=== PATIENT | female | born 1940 | race Caucasian/White ===

== ENCOUNTER 2017-03-27 19:16 | Emergency (ER) | payer MEDICARE, BC, OTHER ==
[~2017-03-27] VITALS: Ht 157.5 cm; Wt 47.0 kg
[2017-03-27 19:45] VITALS: BP 184/77; PULSE 79; RESP 16; TEMP 97.9; O2SAT 97
[2017-03-27 20:33] LABS: AUTOMATED NEUTROPHIL # 5.9 TH/MM3 (1.8-7.7); BASOPHIL % 0.4 % (0.0-2.0); EOSINOPHIL # 0.3 TH/MM3 (0-0.4); EOSINOPHIL % 2.6 % (0.0-4.0); HEMATOCRIT 35.5 % (35.0-46.0); HEMO FLAGS DIFF FINAL; LYMPH % 29.4 % (9.0-44.0); MEAN CELL VOLUME 88.8 FL (80.0-100.0); MEAN CORPUSCULAR HEMOGLOBIN 28.9 PG (27.0-34.0); MEAN CORPUSCULAR HGB CONC 32.5 % (32.0-36.0); MONO % 10.3 % (0.0-8.0); NEUT % 57.3 % (16.0-70.0); PLATELET COUNT 306 TH/MM3 (150-450); RED BLOOD COUNT 3.99 MIL/MM3 (4.00-5.30); RED CELL DISTRIBUTION WIDTH 13.6 % (11.6-17.2); WHITE BLOOD COUNT 10.4 TH/MM3 (4.0-11.0)
[2017-03-27 20:55] LABS: ANION GAP 7 MEQ/L (5-15); AST (GOT) 24 U/L (15-37); BICARBONATE 26.4 MEQ/L (21.0-32.0); BLOOD UREA NITROGEN 12 MG/DL (7-18); CHLORIDE 106 MEQ/L (98-107); GLOMERULAR FILTRATION RATE 43 ML/MIN (>89); POTASSIUM 3.9 MEQ/L (3.5-5.1); SODIUM (NA) 139 MEQ/L (136-145)
[2017-03-27 21:00] LABS: ACETAMINOPHEN 19.8 MCG/ML (10.0-30.0); ALKALINE PHOSPHATASE 86 U/L (45-117); ALT (GPT) 26 U/L (10-53); TOTAL BILIRUBIN ADULT 0.2 MG/DL (0.2-1.0)
[2017-03-27] MEDS ORDERED: HALOPERIDOL LACTATE 5 MG/ML AMP IM ONE (23:00)
[2017-03-27] MEDS ORDERED: LOMO2.5T PO (23:08)
[2017-03-27] MEDS ORDERED: SYNT25TA PO (23:08)
[2017-03-27 23:12] LABS: AMPHETAMINE, URINE NEG (NEG); BACTERIA, URINE RARE /hpf; BARBITURATES, URINE POS (NEG); BLOOD, URINE NEG (NEG); CALCIUM OXALATE CRYSTALS,URINE RARE /hpf; COCAINE, URINE NEG (NEG); GLUCOSE,URINE TRACE mg/dL (NEG); HYALINE CAST, URINE 2 /lpf (RARE); KETONE, URINE NEG (NEG); MUCUS URINE FEW /lpf (OCC); NITRITE,URINE NEG (NEG); RENAL EPITHELIAL CELLS <1 /hpf; SQUAMOUS EPITHELIAL CELL URINE 3 /hpf (0-5); URINE COLOR LIGHT-YELLOW (YELLW/STRAW)
[2017-03-27 23:13] LABS: COMMENT (UR) CULT NOT INDICATED; CULTURE IF INDICATED CULT NOT INDICATED
--- NOTE | 2017-03-28 00:10 | PD ---
HPI Chief Complaint: Psychiatric Symptoms Time Seen by Provider: 20:49 Travel History International Travel<30 days: No Contact w/Intl Traveler<30days: No History of Present Illness HPI This 77-year-old woman who presents to the emergency department brought in as a Estrada act. She apparently was found in her car but did not know where she was. She apparently crawling in the rain. She was apparently acting erratically, tried to drink a bottle Glucophage pills, and also tried Arava seatbelt around her neck. He is unable to give any kind of meaningful history. History Past Medical History Narrative Medical Diabetes Hypertension Hyperthyroidism Tetanus Vaccination: < 5 Years Influenza Vaccination: Yes Social History Alcohol Use: Yes (OCCASIONALLY ) Tobacco Use: No Allergies-Medications (Allergen,Severity, Reaction): Coded Allergies: Opiate Agonists (Narcotics) (Verified Allergy, Severe, Rash, 03/27/17) Reported Meds & Prescriptions Reported Meds & Active Scripts Active Reported Synthroid (Levothyroxine Sodium) 25 Mcg Tab 25 Mcg PO DAILY Lomotil (Diphenoxylate-Atropine) 2.5-0.025 Mg Tab 1 Tab PO Q6H PRN Review of Systems ROS Limitations: Clinical Condition Physical Exam Exam Limitations: Clinical Condition Narrative GENERAL: 77 year-old woman, wandering and pacing in the room, little bit nonsensical. SKIN: Focused skin assessment warm/dry. NECK: Trachea midline. No JVD. CARDIOVASCULAR: Regular rate and rhythm. No murmur appreciated. RESPIRATORY: No accessory muscle use. Clear to auscultation. Breath sounds equal bilaterally. GASTROINTESTINAL: Abdomen soft, non-tender, nondistended. Hepatic and splenic margins not palpable. MUSCULOSKELETAL: No obvious deformities. No edema. NEUROLOGICAL: Awake and alert. Obvious confusion. No obvious cranial nerve deficits. Motor grossly within normal limits. Normal speech. PSYCHIATRIC: Disorganized and confused. Data Data Last Documented VS Vital Signs Date Time Temp Pulse Resp B/P Pulse Ox O2 Delivery O2 Flow Rate FiO2 03/27/17 19:45 97.9 79 16 184/77 97 Room Air Orders Complete Blood Count With Diff (03/27/17 20:04) Comprehensive Metabolic Panel (03/27/17 20:04) Urinalysis - C+S If Indicated (03/27/17 20:04) Psych Screen (03/27/17 20:04) Drug Screen, Random Urine (03/27/17 20:04) Alcohol (Ethanol) (03/27/17 20:04) Salicylates (Aspirin) (03/27/17 20:04) Tylenol (Acetaminophen) (03/27/17 20:04) Haloperidol Inj (Haldol Inj) (03/27/17 23:00) Labs Laboratory Tests Test 03/27/17 03/27/17 20:12 22:00 White Blood Count 10.4 TH/MM3 Red Blood Count 3.99 MIL/MM3 Hemoglobin 11.5 GM/DL Hematocrit 35.5 % Mean Corpuscular Volume 88.8 FL Mean Corpuscular Hemoglobin 28.9 PG Mean Corpuscular Hemoglobin 32.5 % Concent Red Cell Distribution Width 13.6 % Platelet Count 306 TH/MM3 Mean Platelet Volume 8.0 FL Neutrophils (%) (Auto) 57.3 % Lymphocytes (%) (Auto) 29.4 % Monocytes (%) (Auto) 10.3 % Eosinophils (%) (Auto) 2.6 % Basophils (%) (Auto) 0.4 % Neutrophils # (Auto) 5.9 TH/MM3 Lymphocytes # (Auto) 3.0 TH/MM3 Monocytes # (Auto) 1.1 TH/MM3 Eosinophils # (Auto) 0.3 TH/MM3 Basophils # (Auto) 0.0 TH/MM3 CBC Comment DIFF FINAL Differential Comment Sodium Level 139 MEQ/L Potassium Level 3.9 MEQ/L Chloride Level 106 MEQ/L Carbon Dioxide Level 26.4 MEQ/L Anion Gap 7 MEQ/L Blood Urea Nitrogen 12 MG/DL Creatinine 1.22 MG/DL Estimat Glomerular Filtration 43 ML/MIN Rate Random Glucose 73 MG/DL Calcium Level 8.8 MG/DL Total Bilirubin 0.2 MG/DL Aspartate Amino Transf 24 U/L (AST/SGOT) Alanine Aminotransferase 26 U/L (ALT/SGPT) Alkaline Phosphatase 86 U/L Total Protein 7.3 GM/DL Albumin 3.5 GM/DL Salicylates Level 17.8 MG/DL Acetaminophen Level 19.8 MCG/ML Ethyl Alcohol Level LESS THAN 3 MG/DL Urine Color LIGHT-YELLOW Urine Turbidity CLEAR Urine pH 6.0 Urine Specific [place] 1.008 Urine Protein TRACE mg/dL Urine Glucose (UA) TRACE mg/dL Urine Ketones NEG mg/dL Urine Occult Blood NEG Urine Nitrite NEG Urine Bilirubin NEG Urine Urobilinogen LESS THAN 2.0 MG/DL Urine Leukocyte Esterase LARGE Urine RBC 1 /hpf Urine WBC 8 /hpf Urine Squamous Epithelial 3 /hpf Cells Urine Renal Epithelial Cells <1 /hpf Urine Calcium Oxalate Crystals RARE /hpf Urine Bacteria RARE /hpf Urine Hyaline Casts 2 /lpf Urine Mucus FEW /lpf Microscopic Urinalysis Comment CULT NOT INDICATED Urine Opiates Screen POS Urine Barbiturates Screen POS Urine Amphetamines Screen NEG Urine Benzodiazepines Screen POS Urine Cocaine Screen NEG Urine Cannabinoids Screen NEG MDM Medical Decision Making Medical Screen Exam Complete: Yes Emergency Medical Condition: Yes Interpretation(s) LABS: CBC is remarkable for mild anemia. CMP is unremarkable. UA is unremarkable. Urine drugs positive for opiates, barbiturates, benzos, alcohol negative Differential Diagnosis Dementia, psychotic disease, adverse effect of illicit drugs, other Narrative Course 77 year-old woman, bizarre behavior unclear etiology. Unknown if she has established psychiatric disease. Possibly dementia but appears more psychiatric. Possibly related to illicit drugs. Patient is medically clear for psychiatric evaluation. Fazal Hudson MD Mar 28, 2017 00:10
[2017-03-28 07:00] VITALS: BP 162/74; PULSE 77; RESP 16; TEMP 98; O2SAT 98
--- NOTE | 2017-03-28 09:05 | PD ---
History of Present Illness Chief Complaint: Psychiatric Symptoms Time Seen by Provider: 08:59 Travel History International Travel<30 Days: No Contact w/Intl Traveler<30days: No Legal Status Legal Status: Estrada Act Estrada Act Signed By: Caron To History of Present Illness: History of Present Illness This 77-year-old woman with no reported psychiatric history who presents to the emergency department brought in as a Estrada act. The BA report alleges that she was found in her car but did not know where she was, that she had been crawling in the rain and that she attempted to drink a bottle of Glucophage , as well as attempting to wrap the seat belt around her neck. EMR is reviewed. No previous contact with [facility]. Current toxicology is positive for opiates, barbiturates and benzos. The patient is seen in main Ed. She is eating her breakfast. Alert , oriented to person, May 08, 2017, knows she is in [place]. Her speech is clear and she is able to engage in conversation. She denies that she was crawling in the rain and denies that she tried to take any pills. I believe that she has no recollection of those events. She denies any suicdal or homicidal ideation, intent or plan. She denies hearing any voices. She is suspicious of her family and states that they are trying to keep her money. She lives with her brother. She denies feeling depressed or anxious. She denies that she takes any medication except her medication for high blood pressure and for her diabetes. Unable to explain other medications that are detected in her system. While in ED she has not been agitated in aggressive in any way and has not demonstrated any unusual behavior. TC to brother at [phone]. No answer. message left. PFSH Past Medical History Diabetes: Yes Patient Takes Glucophage: Yes Hypertension: Yes Thyroid Disease: Yes Tetanus Vaccination: < 5 Years Influenza Vaccination: Yes Psychiatric History Psychiatric History Hx Psychiatric Treatment: Deneis any History of Inpatient Treatment: No Guns or firearms in home: No Social History Lives with her brother. 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 Hx Alcohol Use: Yes (OCCASIONALLY ) Hx Tobacco Use: No Hx Substance Use: No Hx of Substance Use Treatment: No Family Psychiatric History None reported Allergies-Medications (Allergen,Severity, Reaction): Coded Allergies: Opiate Agonists (Narcotics) (Verified Allergy, Severe, Rash, 03/27/17) Reported Meds & Prescriptions Reported Meds & Active Scripts Active Reported Synthroid (Levothyroxine Sodium) 25 Mcg Tab 25 Mcg PO DAILY Lomotil (Diphenoxylate-Atropine) 2.5-0.025 Mg Tab 1 Tab PO Q6H PRN Review of Systems Except as stated in HPI: all other systems reviewed are Neg Exam Alert: Yes [place]: Person, Place, Situation Mood: Calm Affect: Appropriate Speech: Clear Eye Contact: Normal Memory Intact: Comment (No gross abnormality) Hallucinations: Other (denies any) Delusions: No Delusion Type: Other (Susopicious of her family ) Suicidal: Ideation (deneis any) Homicidal: Ideation (deneis any ) Insight/Judgement Poor. Poor MDM Medical Decision Making Medical Record Reviewed: Yes Assessment/Plan This 77-year-old woman with no reported psychiatric history who presents to the emergency department brought in as a Estrada act. The BA report alleges that she was found in her car but did not know where she was, that she had been crawling in the rain and that she attempted to drink a bottle of Glucophage , as well as attempting to wrap the seat belt around her neck. Positive toxicology for benzos, barbiturates as well as opiates. She did not present any behaviors while in ED. Possibly she presented with intoxication from medications she may have taken or she is displaying symptoms associated with dementia. At this time and after observation in ED she does not meet criteria for BA . It will be lifted. Unable to obtain collateral information at this time. I will refer to CM to attempt to contact her brother for information as well as to determine if he will pick her up. If we are able to speak with her brother and he presents no concerns she can be discharged to his care. Orders Complete Blood Count With Diff (03/27/17 20:04) Comprehensive Metabolic Panel (03/27/17 20:04) Urinalysis - C+S If Indicated (03/27/17 20:04) Psych Screen (03/27/17 20:04) Drug Screen, Random Urine (03/27/17 20:04) Alcohol (Ethanol) (03/27/17 20:04) Salicylates (Aspirin) (03/27/17 20:04) Tylenol (Acetaminophen) (03/27/17 20:04) Haloperidol Inj (Haldol Inj) (03/27/17 23:00) Diet Regular Basic (03/28/17 Breakfast) Results Vital Signs Date Time Temp Pulse Resp B/P Pulse Ox O2 Delivery O2 Flow Rate FiO2 03/27/17 19:45 97.9 79 16 184/77 97 Room Air Laboratory Tests Test 03/27/17 03/27/17 20:12 22:00 White Blood Count 10.4 Red Blood Count 3.99 Hemoglobin 11.5 Hematocrit 35.5 Mean Corpuscular Volume 88.8 Mean Corpuscular Hemoglobin 28.9 Mean Corpuscular Hemoglobin 32.5 Concent Red Cell Distribution Width 13.6 Platelet Count 306 Mean Platelet Volume 8.0 Neutrophils (%) (Auto) 57.3 Lymphocytes (%) (Auto) 29.4 Monocytes (%) (Auto) 10.3 Eosinophils (%) (Auto) 2.6 Basophils (%) (Auto) 0.4 Neutrophils # (Auto) 5.9 Lymphocytes # (Auto) 3.0 Monocytes # (Auto) 1.1 Eosinophils # (Auto) 0.3 Basophils # (Auto) 0.0 CBC Comment DIFF FINAL Differential Comment Sodium Level 139 Potassium Level 3.9 Chloride Level 106 Carbon Dioxide Level 26.4 Anion Gap 7 Blood Urea Nitrogen 12 Creatinine 1.22 Estimat Glomerular Filtration 43 Rate Random Glucose 73 Calcium Level 8.8 Total Bilirubin 0.2 Aspartate Amino Transf 24 (AST/SGOT) Alanine Aminotransferase 26 (ALT/SGPT) Alkaline Phosphatase 86 Total Protein 7.3 Albumin 3.5 Salicylates Level 17.8 Acetaminophen Level 19.8 Ethyl Alcohol Level LESS THAN 3 Urine Color LIGHT-YELLOW Urine Turbidity CLEAR Urine pH 6.0 Urine Specific [place] 1.008 Urine Protein TRACE Urine Glucose (UA) TRACE Urine Ketones NEG Urine Occult Blood NEG Urine Nitrite NEG Urine Bilirubin NEG Urine Urobilinogen LESS THAN 2.0 Urine Leukocyte Esterase LARGE Urine RBC 1 Urine WBC 8 Urine Squamous Epithelial 3 Cells Urine Renal Epithelial Cells <1 Urine Calcium Oxalate Crystals RARE Urine Bacteria RARE Urine Hyaline Casts 2 Urine Mucus FEW Microscopic Urinalysis Comment CULT NOT INDICATED Urine Opiates Screen POS Urine Barbiturates Screen POS Urine Amphetamines Screen NEG Urine Benzodiazepines Screen POS Urine Cocaine Screen NEG Urine Cannabinoids Screen NEG Diagnosis Primary Impression: Adjustment disorder Psychiatrically Cleared: Yes Disposition: 01 DISCHARGE HOME Condition: Stable Problem Qualifiers Primary Impression: Adjustment disorder Qualified Code: F43.20 - Adjustment disorder, unspecified type Felecia Alvarez Mar 28, 2017 09:05
[2017-03-28 14:33] VITALS: BP 158/78
== END 2017-03-28 14:52 | disposition home or self-care (01) ==
LOC: NEPD 19:16
DX: Z02.89 Encounter for other administrative examinations (principal); F43.20 Adjustment disorder, unspecified; E03.9 Hypothyroidism, unspecified; E11.9 Type 2 diabetes mellitus without complications; Z79.84 Long term (current) use of oral hypoglycemic drugs
CPT/HCPCS: 80053; 80307; 81001; 85025; 96372; 99284; J1630

== ENCOUNTER 2017-04-06 12:04 | Observation (INO) | payer MEDICARE, BC ==
[2017-04-06] VITALS (11 sets, daily range): BP systolic 119–235; BP diastolic 61–98; PULSE 70–101; RESP 16–20; TEMP 96–98.4; O2SAT 97–100
[~2017-04-06] VITALS: Ht 160 cm; Wt 52.0 kg
[~2017-04-06 12:04] MED LIST: LOMO2.5T PO; SYNT25TA PO
--- NOTE | 2017-04-06 12:15 | PD ---
Physical Exam Date Seen by Provider: Apr 06, 2017 Time Seen by Provider: 12:12 Narrative 77 YOWF FEELING OVER WHELMED. A LOT OF ISSUES. WANTS TO BE CHECKED OUT VS REVIEWED WAITING FOR BED PLACEMENT Data Data Last Documented VS Vital Signs Date Time Temp Pulse Resp B/P Pulse Ox O2 Delivery O2 Flow Rate FiO2 04/06/17 12:07 96.0 73 16 235/98 MDM Supervised Visit with ISABELLE: Rodrigo Shrestha Apr 06, 2017 12:15
[2017-04-06] MEDS ORDERED: SODIUM CHLORIDE 0.9% FLUSH 5 ML FLUSH IV FLUSH PRN (14:00)
[2017-04-06] MEDS ORDERED: hydrALAZINE HCL 20 MG/ML VIAL IV PUSH ONE (14:00)
--- NOTE | 2017-04-06 14:03 | PD ---
HPI Chief Complaint: General Weakness Time Seen by Provider: 13:54 Travel History International Travel<30 days: No Contact w/Intl Traveler<30days: No Traveled to known affect area: No History of Present Illness HPI 77 year old female presents to the emergency department for evaluation. The patient cannot tell me why she is here. At first, she tells me that she felt like she needed to come or she thought she was going to "". Then she states that she does not know why she is here. Then the patient became confused and did not show she was in the emergency department. She does know her name and that she is at the hospital. However, she later became confused and did not know she was in the hospital. She was able to tell me the year and thought we ran either March or April. She told me that she has a [place] but now, but does not live there because the family issues. First, she told me she slept on a park bench last night, but then tells me that she does not know where she slept. She also tells me that she does not know how she got to the emergency department. The patient denies any complaints when I ask her. The patient is acting bizarre and confused. The patient states that she does not take any of her medications for about a month. At first, she told me that her family did not give him to her. She then stated that her doctor, Dr. Goncalves, would not give her her medications. Patient will not give me any names or numbers of family members. Patient denies any history of psychiatric illness to me. She denies any suicidal or homicidal ideation. PFSH Past Medical History Cardiovascular Problems: Yes Diabetes: Yes Diminished Hearing: No Hypertension: Yes Neurologic: Yes ([facility]) Thyroid Disease: Yes Tetanus Vaccination: > 5 Years Influenza Vaccination: Yes ?: Not Social History Alcohol Use: Yes (OCCASIONALLY ) Tobacco Use: Yes (SOME DAYS) Substance Use: No (PT DENIES ) Allergies-Medications (Allergen,Severity, Reaction): Coded Allergies: Opioids - Morphine Analogues (Verified Allergy, Severe, Rash, 04/06/17) Opioids-Meperidine and Related (Verified Allergy, Severe, Rash, 04/06/17) Opioids-Methadone and Related (Verified Allergy, Severe, Rash, 04/06/17) Reported Meds & Prescriptions Reported Meds & Active Scripts Active Reported Amitriptyline (Amitriptyline HCl) 25 Mg Tab 25 Mg PO HS Clonidine (Clonidine HCl) 0.2 Mg Tab 0.2 Mg PO HS Gabapentin 300 Mg Cap 300 Mg PO HS Levothyroxine (Levothyroxine Sodium) 50 Mcg Tab 50 Mcg PO DAILY@1600 Pravastatin 20 Mg Tab 20 Mg PO HS Hydrochlorothiazide 25 Mg Tab 25 Mg PO DAILY Prilosec (Omeprazole Magnesium) 20 Mg Tab 40 Mg PO DAILY Glimepiride 4 Mg Tab 4 Mg PO BID Take with breakfast or first main meal Carvedilol 25 Mg Tab 25 Mg PO BID Altace (Ramipril) 10 Mg Cap 10 Mg PO DAILY Review of Systems Except as stated in HPI: all other systems reviewed are Neg Physical Exam Narrative GENERAL: Well-nourished, well-developed elderly female patient, afebrile. SKIN: Focused skin assessment warm/dry. HEAD: Normocephalic. EYES: No scleral icterus. No injection or drainage. NECK: Supple, trachea midline. No JVD or lymphadenopathy. CARDIOVASCULAR: Regular rate and rhythm without murmurs, gallops, or rubs. Bilateral radial and pedal pulses are 2+. RESPIRATORY: Breath sounds equal bilaterally. No accessory muscle use. Lungs sounds are clear to auscultation GASTROINTESTINAL: Abdomen soft, non-tender, nondistended. MUSCULOSKELETAL: No cyanosis, or edema. Bilateral upper and lower extremity strength 5/5. BACK: Nontender without obvious deformity. No CVA tenderness. Data Data Last Documented VS Vital Signs Date Time Temp Pulse Resp B/P Pulse Ox O2 Delivery O2 Flow Rate FiO2 04/06/17 16:17 97.8 92 17 145/68 100 Room Air Orders Electrocardiogram (04/06/17 13:48) Ammonia (04/06/17 13:48) Complete Blood Count With Diff (04/06/17 13:48) Comprehensive Metabolic Panel (04/06/17 13:48) Creatine Kinase (Cpk) (04/06/17 13:48) Prothrombin Time / Inr (Pt) (04/06/17 13:48) Act Partial Throm Time (Ptt) (04/06/17 13:48) Troponin I (04/06/17 13:48) Urinalysis - C+S If Indicated (04/06/17 13:48) Chest, Single Ap (04/06/17 13:48) Ct Brain W/O Iv Contrast(Rout) (04/06/17 13:48) Blood Glucose (04/06/17 13:48) Ecg Monitoring (04/06/17 13:48) Iv Access Insert/Monitor (04/06/17 13:48) Oximetry (04/06/17 13:48) Sodium Chloride 0.9% Flush (Ns Flush) (04/06/17 14:00) Drug Screen, Random Urine (04/06/17 13:48) Alcohol (Ethanol) (04/06/17 13:48) Hydralazine Inj (Apresoline Inj) (04/06/17 14:00) Cath For Specimen (04/06/17 13:51) Haloperidol Inj (Haldol Inj) (04/06/17 15:00) Lorazepam Inj (Ativan Inj) (04/06/17 15:00) Aspirin Chew (Aspirin Chew) (04/06/17 16:30) Admit Order (Ed Use Only) (04/06/17 16:34) Labs Laboratory Tests Test 04/06/17 14:05 White Blood Count 11.9 TH/MM3 Red Blood Count 4.18 MIL/MM3 Hemoglobin 12.5 GM/DL Hematocrit 37.4 % Mean Corpuscular Volume 89.4 FL Mean Corpuscular Hemoglobin 30.0 PG Mean Corpuscular Hemoglobin 33.5 % Concent Red Cell Distribution Width 13.9 % Platelet Count 331 TH/MM3 Mean Platelet Volume 8.4 FL Neutrophils (%) (Auto) 70.0 % Lymphocytes (%) (Auto) 20.8 % Monocytes (%) (Auto) 7.8 % Eosinophils (%) (Auto) 1.0 % Basophils (%) (Auto) 0.4 % Neutrophils # (Auto) 8.4 TH/MM3 Lymphocytes # (Auto) 2.5 TH/MM3 Monocytes # (Auto) 0.9 TH/MM3 Eosinophils # (Auto) 0.1 TH/MM3 Basophils # (Auto) 0.1 TH/MM3 CBC Comment DIFF FINAL Differential Comment Urine Color LIGHT-YELLOW Urine Turbidity CLEAR Urine pH 6.5 Urine Specific [place] 1.006 Urine Protein 30 mg/dL Urine Glucose (UA) NEG mg/dL Urine Ketones NEG mg/dL Urine Occult Blood NEG Urine Nitrite NEG Urine Bilirubin NEG Urine Urobilinogen LESS THAN 2.0 MG/DL Urine Leukocyte Esterase NEG Urine RBC 7 /hpf Urine WBC LESS THAN 1 /hpf Urine Squamous Epithelial <1 /hpf Cells Microscopic Urinalysis Comment CULT NOT INDICATED Sodium Level 135 MEQ/L Potassium Level 4.5 MEQ/L Chloride Level 100 MEQ/L Carbon Dioxide Level 26.3 MEQ/L Anion Gap 9 MEQ/L Blood Urea Nitrogen 17 MG/DL Creatinine 1.35 MG/DL Estimat Glomerular Filtration 38 ML/MIN Rate Random Glucose 153 MG/DL Calcium Level 9.9 MG/DL Total Bilirubin 0.4 MG/DL Aspartate Amino Transf 25 U/L (AST/SGOT) Alanine Aminotransferase 30 U/L (ALT/SGPT) Alkaline Phosphatase 117 U/L Ammonia 18 MCMOL/L Total Creatine Kinase 66 U/L Troponin I LESS THAN 0.02 NG/ML Total Protein 8.2 GM/DL Albumin 3.8 GM/DL Urine Opiates Screen NEG Urine Barbiturates Screen NEG Urine Amphetamines Screen NEG Urine Benzodiazepines Screen NEG Urine Cocaine Screen NEG Urine Cannabinoids Screen NEG Ethyl Alcohol Level LESS THAN 3 MG/DL MDM Medical Decision Making Medical Screen Exam Complete: Yes Emergency Medical Condition: Yes Medical Record Reviewed: Yes Interpretation(s) Last Impressions Head CT 04/06/17 1348 Signed Impressions: Service Date/Time: March 15:25 - CONCLUSION: 1. No acute hemorrhage or mass effect. 2. Atrophy and chronic small vessel ischemic change. Da Anderson MD Chest X-Ray 04/06/17 1348 Signed Impressions: Service Date/Time: March 13:59 - CONCLUSION: No acute disease. Glenn Roger MD Differential Diagnosis Electrolyte abnormality versus intracranial abnormality versus dementia versus dehydration versus UTI Narrative Course 77-year-old elderly female presents to the emergency department, unsure as to why she is here. However, she is acting bizarre and confused. EKG, CBC, CMP, CK, troponin, ammonia, PTT, PT/INR, UA, UDS, alcohol level are ordered and pending. Chest x-ray and CT of the brain are ordered and pending. EKG shows SR, Hr 92, ST depression in V4, V5, V6, II, III, AVF. CBC shows leukocytosis of 11.9. CMP shows creatinine 1.35. CK is 66. Troponin is less than 0.02. Ammonia is 18. UA .is negative for acute infection. UDS is negative. Alcohol level is less than 3. Chest x-ray shows no acute disease. CT of the brain shows no acute hemorrhage or mass effect; Atrophy and chronic small vessel ischemic change. [facility] is paged for admission. Dr. Russell accepted admission. Diagnosis Primary Impression: Altered mental status, unspecified Qualified Code: R41.82 - Altered mental status, unspecified altered mental status type Additional Impression: EKG abnormalities Admitting Information Admitting Physician Requests: Jaki De La Rosa Apr 06, 2017 14:03
--- NOTE | 2017-04-06 14:48 | RADRPT ---
EXAM DATE/TIME: 04/06/2017 13:59 [facility] COMPARISON: No previous studies available for comparison. INDICATIONS : Short of breath. AMS. MEDICAL HISTORY : None. SURGICAL HISTORY : None. ENCOUNTER: Initial ACUITY: 1 day PAIN SCORE: 0/10 LOCATION: Bilateral chest FINDINGS: A single view of the chest demonstrates the lungs to be symmetrically aerated without evidence of mas s, infiltrate or effusion. The cardiomediastinal contours are unremarkable. Osseous structures are intact. CONCLUSION: No acute disease. Glenn Roger MD on April 06, 2017 at 14:43 Board Certified Radiologist. This report was verified electronically.
[2017-04-06] MEDS ORDERED: LORazepam 2 MG/ML VIAL IV PUSH ONE (15:00)
[2017-04-06] MEDS ORDERED: HALOPERIDOL LACTATE 5 MG/ML AMP IV PUSH ONE (15:00)
[2017-04-06 15:07] LABS: AUTOMATED NEUTROPHIL # 8.4 TH/MM3 (1.8-7.7); BASOPHIL # 0.1 TH/MM3 (0-0.2); BASOPHIL % 0.4 % (0.0-2.0); BLOOD, URINE NEG (NEG); COMMENT (UR) CULT NOT INDICATED; CULTURE IF INDICATED CULT NOT INDICATED; EOSINOPHIL # 0.1 TH/MM3 (0-0.4); GLUCOSE,URINE NEG (NEG); HEMATOCRIT 37.4 % (35.0-46.0); HEMO FLAGS DIFF FINAL; KETONE, URINE NEG (NEG); LYMPH % 20.8 % (9.0-44.0); LYMPHOCYTE # 2.5 TH/MM3 (1.0-4.8); MEAN CELL VOLUME 89.4 FL (80.0-100.0); MEAN CORPUSCULAR HGB CONC 33.5 % (32.0-36.0); MONO % 7.8 % (0.0-8.0); NITRITE,URINE NEG (NEG); PH, URINE 6.5 (5.0-8.5); PLATELET COUNT 331 TH/MM3 (150-450); RED BLOOD COUNT 4.18 MIL/MM3 (4.00-5.30); RED CELL DISTRIBUTION WIDTH 13.9 % (11.6-17.2); SQUAMOUS EPITHELIAL CELL URINE <1 /hpf (0-5); URINE COLOR LIGHT-YELLOW (YELLW/STRAW); WHITE BLOOD COUNT 11.9 TH/MM3 (4.0-11.0)
[2017-04-06 15:33] LABS: ALCOHOL LESS THAN 3 MG/DL (0-5); ALT (GPT) 30 U/L (10-53); ANION GAP 9 MEQ/L (5-15); AST (GOT) 25 U/L (15-37); BICARBONATE 26.3 MEQ/L (21.0-32.0); BLOOD UREA NITROGEN 17 MG/DL (7-18); CHLORIDE 100 MEQ/L (98-107); GLOMERULAR FILTRATION RATE 38 ML/MIN (>89); POTASSIUM 4.5 MEQ/L (3.5-5.1); SODIUM (NA) 135 MEQ/L (136-145)
[2017-04-06 15:39] LABS: ALKALINE PHOSPHATASE 117 U/L (45-117); TOTAL BILIRUBIN ADULT 0.4 MG/DL (0.2-1.0)
--- NOTE | 2017-04-06 15:41 | RADRPT ---
EXAM DATE/TIME: 04/06/2017 15:25 [facility] COMPARISON: No previous studies available for comparison. INDICATIONS : Weakness RADIATION DOSE: 56.35 CTDIvol (mGy) ; Patient motion MEDICAL HISTORY : Hypertension. Diabetes mellitus type 1. SURGICAL HISTORY : None. ENCOUNTER: Initial ACUITY: 1 day PAIN SCALE: 0/10 LOCATION: cranial TECHNIQUE: Multiple contiguous axial images were obtained of the head. Using automated exposure control and adj ustment of the mA and/or kV according to patient size, radiation dose was kept as low as reasonably a chievable to obtain optimal diagnostic quality images. DICOM format image data is available electro nically for review and comparison. FINDINGS: CEREBRUM: There is moderate atrophic change with sulcal and ventricular prominence. Periventricular white matte r lucencies are present. No evidence of midline shift, mass lesion, hemorrhage or acute infarction. No extra-axial fluid collections are seen. POSTERIOR FOSSA: The cerebellum and brainstem are intact. The 4th ventricle is midline. The cerebellopontine angle i s unremarkable. EXTRACRANIAL: The visualized portion of the orbits is intact. SKULL: The calvaria is intact. No evidence of skull fracture. CONCLUSION: 1. No acute hemorrhage or mass effect. 2. Atrophy and chronic small vessel ischemic change. Da Anderson MD on April 06, 2017 at 15:39 Board Certified Radiologist. This report was verified electronically.
[2017-04-06 15:47] LABS: CREATINE KINASE 66 U/L (26-192)
[2017-04-06] MEDS ORDERED: CLON0.2T PO (16:26)
[2017-04-06] MEDS ORDERED: LEVO50TA4 PO (16:26)
[2017-04-06] MEDS ORDERED: PRIL20TA2 PO (16:26)
[2017-04-06] MEDS ORDERED: AMIT25TA9 PO (16:26)
[2017-04-06] MEDS ORDERED: ALTA10CA10 PO (16:26)
[2017-04-06] MEDS ORDERED: HYDR25TA5 PO (16:26)
[2017-04-06] MEDS ORDERED: CARV25TA PO (16:26)
[2017-04-06] MEDS ORDERED: GABA300C5 PO (16:26)
[2017-04-06] MEDS ORDERED: GLIM4TAB PO (16:26)
[2017-04-06] MEDS ORDERED: PRAV20TA2 PO (16:26)
[2017-04-06] MEDS ORDERED: ASPIRIN 81 MG CHEW TAB CHEW ONE (16:30)
[2017-04-06 17:07] LABS: APTT (PATIENT) 26.9 SEC (24.3-30.1); PROTHROMBIN TIME - PATIENT 11.2 SEC (9.8-11.6)
--- NOTE | 2017-04-06 19:08 | HHI.HP ---
[facility] Service [place] [facility] Primary Care Physician No Primary Care Physician Admission Diagnosis AMS, EKG changes Diagnoses: Chief Complaint: Chest pain Travel History International Travel<30 Days: No Contact w/Intl Traveler <30 Da: No Traveled to Known Affected Are: No History of Present Illness Written by Kristi Sawant, acting as scribe for Dr. Russell on 04/06/17 at 18: 45. Ms. Spence is a 77-year-old female patient with a known medical history of hypertension and COPD who presented to the ED with complaints of chest pain. Patient is a relatively poor historian, alert and oriented x 2 with intermittent disorientation regarding current situation, prescribed medications and living situations. She tates that she was taking her daily walk around the neighborhood, during mid-day hours, and on her way back to the house she became diaphoretic and noticed a sudden chest discomfort with associated back and abdomen pain. Patient states the chest pain was focused in her left anterior chest area, was squeezing and tight in nature, "like someone was sitting on my chest". States the pain would subside with rest and worsens with activity. Pain would last roughly 5 minutes and subside and an 8/10 on pain scale. Currently when asked about chest discomfort she states it is a 5/10. Denies any recent illness including fever, chills, cough, shortness of breath, nausea, vomiting or diarrhea. It should be noted that patient was brought in via EMS this afternoon and found to be completely confused and disoriented upon arrival. At that time she was unable to recount any of the preceding events. Currently patient appears to be alert and oriented and aware of events leading up to her arrival. At one point during the conversation she states she lives in a home with her cousin and denies any close relatives and very compliant with her medications. Later in the conversation states she is homeless and does not know where she lives or aware of any prescribed medications. EMR shows that patient recently presented to the ED for psychiatric symptoms under [place] Act which was eventually lifted and patient cleared for discharge, not meeting psychiatric criteria for admission. Review of Systems Constitutional: COMPLAINS OF: Diaphoretic episodes, Change in appetite, DENIES : Fever, Chills Cardiovascular: COMPLAINS OF: Chest pain, Palpitations Gastrointestinal: COMPLAINS OF: Abdominal pain, DENIES: Constipation, Diarrhea , Nausea, Vomiting Musculoskeletal: COMPLAINS OF: Back pain Neurologic: COMPLAINS OF: Headache Psychiatric: COMPLAINS OF: Confusion Except as stated in HPI: all other systems reviewed are Neg Past Family Social History Past Medical History Hypertension Psychiatric history COPD Hypothyroidism Sleep apnea with BIPAP at home for nighttime Tobacco abuse history Past Surgical History Previous abdominal surgery as a child, does not remember what was done. Hysterectomy Allergies: Coded Allergies: Opioids - Morphine Analogues (Verified Allergy, Severe, Rash, 04/06/17) Opioids-Meperidine and Related (Verified Allergy, Severe, Rash, 04/06/17) Opioids-Methadone and Related (Verified Allergy, Severe, Rash, 04/06/17) Active Ordered Medications Current Medications Medications (Trade) Dose Ordered Sig/Matilda Route Start Time Stop Time Status Last Admin (NS Flush) 2 ml UNSCH PRN IV FLUSH 04/06/17 14:00 04/06/17 14:27 Family History Patient does not know of any significant family medical history. Social History Patient lives in a house with her cousin. Denies any current tobacco use, does admit to a smoking history, stopped smoking in her 50's. Denies any alcohol use. Denies any illicit drug use. Physical Exam Vital Signs Vital Signs Date Time Temp Pulse Resp B/P Pulse Ox O2 Delivery O2 Flow Rate FiO2 04/06/17 18:00 97.8 98 16 148/79 99 Room Air 04/06/17 16:17 97.8 92 17 145/68 100 Room Air 04/06/17 15:08 97.8 87 16 155/65 100 Room Air 04/06/17 14:27 82 16 205/81 99 Room Air 04/06/17 13:50 17 100 Room Air 04/06/17 13:50 87 16 100 04/06/17 12:07 96.0 73 16 235/98 Physical Exam GENERAL: This is a well-nourished, well-developed female patient, alert, intermittently oriented with occasional disorientation to situation, in no apparent distress. SKIN: No rashes, ecchymoses or lesions. Warm and dry. HEENT: Atraumatic. Normocephalic. Pupils equal round and reactive. Extraocular motions intact. No scleral icterus. No injection or drainage. Nose without bleeding. Airway patent. NECK: Trachea midline. No JVD. Supple. CARDIOVASCULAR: Regular rate and rhythm. No murmur appreciated. RESPIRATORY: Clear to auscultation. Breath sounds equal bilaterally. No wheezes , rales, or rhonchi. GASTROINTESTINAL: Abdomen soft, non-tender, nondistended. Previous abdominal scar noted in midline abdomen. No guarding. MUSCULOSKELETAL: Extremities without clubbing, cyanosis. Bilateral lower extremity edema 1+. No joint tenderness, effusion, or edema noted. No calf tenderness. NEUROLOGICAL: Awake and alert. Cranial nerves II through XII intact. Motor and sensory grossly within normal limits. Five out of 5 muscle strength in all muscle groups. Normal speech. Laboratory Laboratory Tests Test 04/06/17 04/06/17 14:05 15:45 White Blood Count 11.9 Red Blood Count 4.18 Hemoglobin 12.5 Hematocrit 37.4 Mean Corpuscular Volume 89.4 Mean Corpuscular Hemoglobin 30.0 Mean Corpuscular Hemoglobin 33.5 Concent Red Cell Distribution Width 13.9 Platelet Count 331 Mean Platelet Volume 8.4 Neutrophils (%) (Auto) 70.0 Lymphocytes (%) (Auto) 20.8 Monocytes (%) (Auto) 7.8 Eosinophils (%) (Auto) 1.0 Basophils (%) (Auto) 0.4 Neutrophils # (Auto) 8.4 Lymphocytes # (Auto) 2.5 Monocytes # (Auto) 0.9 Eosinophils # (Auto) 0.1 Basophils # (Auto) 0.1 CBC Comment DIFF FINAL Differential Comment Urine Color LIGHT-YELLOW Urine Turbidity CLEAR Urine pH 6.5 Urine Specific [place] 1.006 Urine Protein 30 Urine Glucose (UA) NEG Urine Ketones NEG Urine Occult Blood NEG Urine Nitrite NEG Urine Bilirubin NEG Urine Urobilinogen LESS THAN 2.0 Urine Leukocyte Esterase NEG Urine RBC 7 Urine WBC LESS THAN 1 Urine Squamous Epithelial <1 Cells Microscopic Urinalysis Comment CULT NOT INDICATED Sodium Level 135 Potassium Level 4.5 Chloride Level 100 Carbon Dioxide Level 26.3 Anion Gap 9 Blood Urea Nitrogen 17 Creatinine 1.35 Estimat Glomerular Filtration 38 Rate Random Glucose 153 Calcium Level 9.9 Total Bilirubin 0.4 Aspartate Amino Transf 25 (AST/SGOT) Alanine Aminotransferase 30 (ALT/SGPT) Alkaline Phosphatase 117 Ammonia 18 Total Creatine Kinase 66 Troponin I LESS THAN 0.02 Total Protein 8.2 Albumin 3.8 Urine Opiates Screen NEG Urine Barbiturates Screen NEG Urine Amphetamines Screen NEG Urine Benzodiazepines Screen NEG Urine Cocaine Screen NEG Urine Cannabinoids Screen NEG Ethyl Alcohol Level LESS THAN 3 Prothrombin Time 11.2 Prothromb Time International 1.0 Ratio Activated Partial 26.9 Thromboplast Time Result Diagram: 04/06/17 1405 04/06/17 1405 Imaging Last Impressions Head CT 04/06/17 1348 Signed Impressions: Service Date/Time: March 15:25 - CONCLUSION: 1. No acute hemorrhage or mass effect. 2. Atrophy and chronic small vessel ischemic change. Da Anderson MD Chest X-Ray 04/06/17 1348 Signed Impressions: Service Date/Time: March 13:59 - CONCLUSION: No acute disease. Glenn Roger MD Assessment and Plan Assessment and Plan Ms. Spence is a 77-year-old female patient with a known medical history of hypertension, dyslipidemia and COPD who presented to the ED with complaints of chest pain. Atypical chest pain: Initial troponin negative. Follow serial troponins. EKG reviewed showing mild ST depression, NSR. Continue cardiac telemetry. Control pain. Altered mental status, intermittent: suspect secondary to psychiatric history vs medication misuse vs dehydration - Haldol IV and Lorazepam IV given x 1 in ED. - CT head reviewed and unremarkable. - Intermittently disoriented to situation. Attempt to reorient. - Will consult psychiatry for further evaluation, appreciate recommendations. - Continue neuro checks. Hypertension, chronic: BP elevated on presentation 235/98 now 148/79 status post hydralazine IV push in ED. Monitor BP closely. Continue Coreg and low dose Ramipril. Chronic obstructive pulmonary disease: Monitor chronic. No home inhalers or nebs on record. Hypothyroidism: Continue home Levothyroxine. Dyslipidemia: Continue home Pravastatin Acute kidney injury suspect secondary to dehydration - Creatinine upon presentation 1.35. Encourage hydration. Repeat BMP in am. Follow. - 1 L NS bolus ordered. Type 2 diabetes mellitus: Accu checks ACHS sliding scale insulin, cover as needed. DVT Prophylaxis: SCDs/TEDs/Lovenox Kristi Sawant Apr 06, 2017 19:07
[2017-04-06] MEDS ORDERED: GLUCAGON 1 MG/ML VIAL OTHER PRN (19:15)
[2017-04-06] MEDS ORDERED: DEXTROSE 50% IN WATER 50 ML VIAL(D50) IV PRN (19:15)
[2017-04-06] MEDS ORDERED: SODIUM CHLOR 0.9% 1000 ML INJ 1,000 ML IV ONE (19:30)
[2017-04-06] MEDS ORDERED: METF500T PO (20:06)
[2017-04-06] MEDS: INSULIN ASPART SUPPLEMENTAL SCALE SQ SCH (21:00)
[2017-04-06] MEDS: PRAVASTATIN SOD 20 MG TAB PO SCH (21:36)
[2017-04-06] MEDS: CARVEDILOL 12.5 MG TAB PO SCH (21:36)
[2017-04-06] MEDS: RAMIPRIL 1.25 MG CAP PO SCH (21:37)
[2017-04-06] MEDS: ENOXAPARIN SODIUM 30 MG/0.3 ML SYRINGE SQ SCH (21:38)
[2017-04-07] VITALS (8 sets, daily range): BP systolic 128–152; BP diastolic 60–65; PULSE 61–82; RESP 16–17; TEMP 98.1–99.1; O2SAT 94–99
[2017-04-07] MEDS: INSULIN ASPART SUPPLEMENTAL SCALE SQ SCH ×5 (07:06→20:30)
[2017-04-07] MEDS: CARVEDILOL 12.5 MG TAB PO SCH ×2 (09:43→20:40)
[2017-04-07] MEDS: RAMIPRIL 1.25 MG CAP PO SCH (09:43)
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
[2017-04-07] MEDS ORDERED: PILL SPLITTER OTHER PRN (11:15)
[2017-04-07 13:24] LABS: AUTOMATED NEUTROPHIL # 10.1 TH/MM3 (1.8-7.7); BASOPHIL # 0.1 TH/MM3 (0-0.2); BASOPHIL % 0.6 % (0.0-2.0); EOSINOPHIL # 0.1 TH/MM3 (0-0.4); EOSINOPHIL % 1.1 % (0.0-4.0); HEMATOCRIT 34.8 % (35.0-46.0); HEMO FLAGS DIFF FINAL; LYMPH % 13.8 % (9.0-44.0); LYMPHOCYTE # 1.8 TH/MM3 (1.0-4.8); MEAN CELL VOLUME 89.4 FL (80.0-100.0); MEAN CORPUSCULAR HEMOGLOBIN 28.6 PG (27.0-34.0); MONO % 6.5 % (0.0-8.0); PLATELET COUNT 258 TH/MM3 (150-450); RED BLOOD COUNT 3.89 MIL/MM3 (4.00-5.30); RED CELL DISTRIBUTION WIDTH 13.6 % (11.6-17.2)
[2017-04-07] MEDS: QUEtiapine FUMARATE 25 MG TAB PO SCH (13:42)
[2017-04-07 13:49] LABS: BICARBONATE 22.9 MEQ/L (21.0-32.0)
[2017-04-07 13:57] LABS: CREATINE KINASE 43 U/L (26-192)
--- NOTE | 2017-04-07 14:35 | EKG ---
Date Performed: 04/06/2017 Time Performed: 14:45:41 PTAGE: 77 years EKG: Sinus rhythm MODERATE ST DEPRESSION ABNORMAL ECG NO PREVIOUS TRACING DOCTOR: Maik Monteiro Interpretating Date/Time 04/07/2017 14:33:43
[2017-04-07] MEDS ORDERED: SODIUM CHLOR 0.9% 1000 ML INJ 1,000 ML IV ONE (15:45)
[2017-04-07] MEDS: SODIUM CHLOR 0.9% 1000 ML INJ 1,000 ML IV SCH (15:45)
[2017-04-07] MEDS ORDERED: LEVOTHYROXINE SODIUM 50 MCG TAB PO SCH (16:00)
[2017-04-07] MEDS: GLIMEPIRIDE 4 MG TAB PO SCH (20:40)
[2017-04-07] MEDS: ENOXAPARIN SODIUM 30 MG/0.3 ML SYRINGE SQ SCH (20:40)
[2017-04-07] MEDS: PRAVASTATIN SOD 20 MG TAB PO SCH (20:41)
[2017-04-08 00:21] VITALS: PULSE 61
[2017-04-08] MEDS: SODIUM CHLOR 0.9% 1000 ML INJ 1,000 ML IV SCH (01:45)
[2017-04-08 03:22] VITALS: BP 177/74; PULSE 60; RESP 17; TEMP 98.7; O2SAT 99
[2017-04-08] MEDS: INSULIN ASPART SUPPLEMENTAL SCALE SQ SCH (05:53)
[2017-04-08 08:01] VITALS: PULSE 56
[2017-04-08 08:44] VITALS: BP 173/73; PULSE 60; RESP 20; TEMP 97.6; O2SAT 96
[2017-04-08] MEDS ORDERED: ASPIRIN EC 81 MG TABEC PO SCH (09:00)
[2017-04-08 09:19] LABS: BASOPHIL # 0.2 TH/MM3 (0-0.2); BASOPHIL % 2.9 % (0.0-2.0); EOSINOPHIL # 0.2 TH/MM3 (0-0.4); EOSINOPHIL % 2.4 % (0.0-4.0); HEMATOCRIT 31.2 % (35.0-46.0); HEMO FLAGS DIFF FINAL; LYMPH % 21.9 % (9.0-44.0); LYMPHOCYTE # 1.7 TH/MM3 (1.0-4.8); MEAN CORPUSCULAR HEMOGLOBIN 29.9 PG (27.0-34.0); MEAN CORPUSCULAR HGB CONC 33.2 % (32.0-36.0); MONO % 7.9 % (0.0-8.0); NEUT % 64.9 % (16.0-70.0); PLATELET COUNT 213 TH/MM3 (150-450); RED BLOOD COUNT 3.46 MIL/MM3 (4.00-5.30); RED CELL DISTRIBUTION WIDTH 14.1 % (11.6-17.2); WHITE BLOOD COUNT 7.7 TH/MM3 (4.0-11.0)
[2017-04-08] MEDS: QUEtiapine FUMARATE 25 MG TAB PO SCH (09:33)
[2017-04-08] MEDS: GLIMEPIRIDE 4 MG TAB PO SCH (09:34)
[2017-04-08] MEDS: RAMIPRIL 1.25 MG CAP PO SCH (09:35)
[2017-04-08] MEDS: CARVEDILOL 12.5 MG TAB PO SCH (09:36)
[2017-04-08 09:46] LABS: BICARBONATE 20.8 MEQ/L (21.0-32.0); POTASSIUM 3.9 MEQ/L (3.5-5.1)
[2017-04-08] MEDS ORDERED: RAMIPRIL 5 MG CAP PO SCH (10:15)
[2017-04-08] MEDS ORDERED: QUET1TAB7 PO (11:29)
--- NOTE | 2017-04-08 11:29 | HHI.PR ---
Subjective Remarks Follow-up for chest pain, psychosis, uncontrolled hypertension, DOMINICK. Patient reports feeling well today. She denies ever having any chest pain. She denies any fever/chills, headache, lightheadedness, dizziness, shortness of breath, or abdominal complaints. She has been eating and drinking well. Objective Vitals Vital Signs Date Time Temp Pulse Resp B/P Pulse Ox O2 Delivery O2 Flow Rate FiO2 04/08/17 08:44 97.6 60 20 173/73 96 04/08/17 08:01 56 04/08/17 03:22 98.7 60 17 177/74 99 04/08/17 00:21 61 04/07/17 15:36 98.6 69 16 152/64 99 04/07/17 15:00 68 Result Diagram: 04/08/1782204/08/17822 Imaging Last Impressions Head CT 04/06/171347 Signed Impressions: Service Date/Time: March 15:25 - CONCLUSION: 1. No acute hemorrhage or mass effect. 2. Atrophy and chronic small vessel ischemic change. Da Anderson MD Chest X-Ray 04/06/171347 Signed Impressions: Service Date/Time: March 13:59 - CONCLUSION: No acute disease. Glenn Roger MD Objective Remarks GENERAL: Well-nourished, well-developed female patient in [facility]. Ambulatory. SKIN: Warm and dry. No rash. HEENT: Normocephalic. Atraumatic. Pupils equal and round. Mucous membranes pink and moist. CARDIOVASCULAR: Regular rate and rhythm. S1, S2 noted. No murmur appreciated. No chest wall TTP. RESPIRATORY: No accessory muscle use. Clear to auscultation. Breath sounds equal bilaterally. GASTROINTESTINAL: Abdomen soft, non-tender, nondistended. Normoactive bowel sounds x4. MUSCULOSKELETAL: No obvious deformities. Extremities without clubbing, cyanosis , or edema. NEUROLOGICAL: Awake and alert. No obvious cranial nerve deficits. Motor grossly within normal limits. Moving all extremities spontaneously. Normal speech. PSYCHIATRIC: Tangential, anxious mood; insight and judgment limited. Medications and IVs Current Medications Medications (Trade) Dose Ordered Sig/Amtilda Route Start Time Stop Time Status Last Admin (NS Flush) 2 ml UNSCH PRN IV FLUSH 04/06/17 14:00 04/06/17 14:27 (D50w (Vial) Inj) 50 ml UNSCH PRN IV 04/06/17 19:15 (Glucagon Inj) 1 mg UNSCH PRN OTHER 04/06/17 19:15 (Coreg) 25 mg BID PO 04/06/17 21:00 04/08/17 09:36 (Synthroid) 50 mcg DAILY@1600 PO 04/07/17 16:00 04/07/17 16:36 (Pravachol) 20 mg HS PO 04/06/17 21:00 04/07/17 20:41 (Lovenox Inj) 30 mg Q24H SQ 04/06/17 20:00 04/07/17 20:40 (Amaryl) 4 mg BID PO 04/07/17 21:00 04/08/17 09:34 (SEROquel) 12.5 mg BID@09,12 PO 04/07/17 12:00 04/08/17 09:33 (Ecotrin Ec) 81 mg DAILY PO 04/08/17 09:00 04/08/17 09:33 Miscellaneous 1 ea 1 ea UNSCH PRN OTHER 04/07/17 11:15 (NS 1000 ml Inj) 1,000 ml @ 100 mls/hr Q10H IV 04/07/17 15:45 04/08/17 01:45 (Altace) 10 mg DAILY PO 04/08/17 10:15 04/08/17 10:52 (Glucophage) 500 mg TIDPC PO 04/08/17 13:30 UNV A/P Problem List: (1) Altered mental status, unspecified ICD Code: R41.82 Status: Acute (2) Psychiatric problem ICD Code: F99 Status: Acute (3) Atypical chest pain ICD Code: R07.89 Status: Acute (4) DOMINICK (acute kidney injury) ICD Code: N17.9 Status: Acute (5) DM (diabetes mellitus) ICD Code: E11.9 Status: Acute Assessment and Plan 77-year-old female patient with a known medical history of hypertension, dyslipidemia and COPD who presented to the ED with complaints of chest pain. Atypical chest pain: Initial troponin negative. EKG reviewed showing mild ST depression, NSR. -Serial cardiac enzymes negative 2 (checked 23hrs apart) -start aspirin, continue ACEi and BB -Monitored on telemetry, no acute findings -Patient adamantly refuses any stress testing, says she's had this in the past and it has been normal -chest pain resolved, no further episodes Acute Encephalopathy, Altered mental status: suspect secondary to psychosis. CXR, UA, and UDS negative. No acute metabolic etiology identified. - Haldol IV and Lorazepam IV given x 1 in ED. - CT head reviewed and unremarkable. - Continue neuro checks. - Intermittently disoriented to situation. Continue reorientation. Sitter at bedside. - Consult psychiatry, recommends admission to inpatient psychiatry. Hypertension, chronic: BP elevated on presentation 235/98 now 148/79 status post hydralazine IV push in ED. -Monitor BP closely. -Continue Coreg and ramipril Acute kidney injury: suspect secondary to dehydration -Creatinine upon presentation 1.35, increased to 1.64, suspect secondary to noncompliance with IV fluids and oral intake upon arrival. -Restarted IVF and instructed sitter to encourage oral hydration. -Repeat labs today show improvement with creatinine 1.05 Chronic obstructive pulmonary disease: chronic, stable. No home inhalers or nebs on record. Hypothyroidism: Continue home Levothyroxine. Dyslipidemia: Continue home Pravastatin Type 2 diabetes mellitus: chronic. Initially patient's Metformin with DOMINICK, now restarted. Continue patient's glimepiride. Monitor Accu checks, cover with sliding scale insulin. DVT Prophylaxis: SCDs/TEDs/Lovenox Discharge Planning 1005 hrs: Patient is medically cleared for discharge to inpatient psychiatry. Discussed with Patrizia CHOI who will initiate transfer. Discharge patient to inpatient psychiatry Condition on discharge: Improved Heart healthy/diabetic Diet as tolerated Ad Deandra activity Rx written: Seroquel 12.5 mg twice a day Follow-up with primary care physician and psychiatry Problem Qualifiers (1) Altered mental status, unspecified: Qualified Code: R41.82 - Altered mental status, unspecified altered mental status type Madhavi Mcbride PA-C Apr 08, 2017 11:29 am
[2017-04-08] MEDS ORDERED: ASPI-99 PO (11:30)
[2017-04-08] MEDS ORDERED: metFORMIN HCL 500 MG TAB PO SCH (13:30)
== END 2017-04-08 12:32 ==
LOC: NEPD 12:04 → NEDA 16:36 → NEPGCP 20:17
PROVIDERS: ADMIT Hospitalist; ATTEND Hospitalist
DX: R07.89 Other chest pain (principal); R41.82 Altered mental status, unspecified; E03.9 Hypothyroidism, unspecified; E11.9 Type 2 diabetes mellitus without complications; E78.5 Hyperlipidemia, unspecified; I10 Essential (primary) hypertension; G47.30 Sleep apnea, unspecified; J44.9 Chronic obstructive pulmonary disease, unspecified; N17.9 Acute kidney failure, unspecified; R94.31 Abnormal electrocardiogram [ECG] [EKG]; F29 Unspecified psychosis not due to a substance or known physiological condition; G93.40 Encephalopathy, unspecified; Z59.0 Homelessness; Z79.899 Other long term (current) drug therapy
CPT/HCPCS: 70450; 71010; 80048; 80053; 80307; 81001; 82140; 82550; 82948; 84484; 85025; 85610; 85730; 93005; 96361; 96372; 96374; 96375; 99285; G0378; J0360; J1630; J1650; J1815; J2060; J7030

== ENCOUNTER 2017-04-08 12:05 | Inpatient (IN) | payer MEDICARE, BC ==
[~2017-04-08] VITALS: Ht 160 cm; Wt 57.4 kg
[~2017-04-08 12:05] MED LIST changes: +ALTA10CA10 PO; +AMIT25TA9 PO; +ASPI-99 PO; +CARV25TA PO; +CLON0.2T PO; +GABA300C5 PO; +GLIM4TAB PO; +HYDR25TA5 PO; +LEVO50TA4 PO; -LOMO2.5T PO; +METF500T PO; +PRAV20TA2 PO; +PRIL20TA2 PO; +QUET1TAB7 PO; -SYNT25TA PO
[2017-04-08 12:50] VITALS: BP 208/80; PULSE 86
[2017-04-08 13:30] VITALS: BP 176/68
[2017-04-08] MEDS ORDERED: ALUMINUM/MAGNESIUM/SIMETH 30 ML CUP PO PRN (16:30)
[2017-04-08] MEDS ORDERED: MAGNESIUM HYDROXIDE SUSP 30 ML CUP PO PRN (16:30)
[2017-04-08] MEDS ORDERED: LORazepam 2 MG/ML VIAL IM PRN ×2 (16:30)
[2017-04-08] MEDS ORDERED: LORazepam 0.5 MG TAB PO PRN (16:30)
[2017-04-08] MEDS ORDERED: LORazepam 2 MG/ML VIAL IV PUSH PRN ×4 (16:30)
[2017-04-08] MEDS ORDERED: LORazepam 2 MG TAB PO PRN (16:30)
[2017-04-08] MEDS ORDERED: FLUMAZENIL 0.5 MG/5 ML VIAL IV PUSH PRN (16:30)
[2017-04-08] MEDS ORDERED: LORazepam 1 MG TAB PO PRN (16:30)
[2017-04-08 16:34] VITALS: BP 191/85; PULSE 54; RESP 17; TEMP 97.9; O2SAT 98
[2017-04-08] MEDS ORDERED: GLUCAGON 1 MG/ML VIAL OTHER PRN (17:45)
[2017-04-08] MEDS ORDERED: DEXTROSE 50% IN WATER 50 ML VIAL(D50) IV PRN (17:45)
[2017-04-08] MEDS: PANTOPRAZOLE SOD 40 MG DELAYED RELEASE TAB PO SCH (18:48)
[2017-04-08] MEDS: HYDROCHLOROTHIAZIDE 25 MG TAB PO SCH (18:48)
[2017-04-08] MEDS: LEVOTHYROXINE SODIUM 50 MCG TAB PO SCH (18:48)
[2017-04-08] MEDS: metFORMIN HCL 500 MG TAB PO SCH (18:49)
[2017-04-08] MEDS: RAMIPRIL 5 MG CAP PO SCH (18:49)
[2017-04-08] MEDS: PRAVASTATIN SOD 20 MG TAB PO SCH (21:00)
[2017-04-08] MEDS: INSULIN ASPART SUPPLEMENTAL SCALE SQ SCH (21:00)
[2017-04-08] MEDS: GABAPENTIN 300 MG CAP PO SCH (21:56)
[2017-04-08] MEDS: GLIMEPIRIDE 4 MG TAB PO SCH (21:56)
[2017-04-08] MEDS: CARVEDILOL 12.5 MG TAB PO SCH (21:56)
[2017-04-08] MEDS: LORazepam 1 MG TAB PO PRN (22:12)
[2017-04-09 05:32] VITALS: BP 127/56; PULSE 61; RESP 17; TEMP 98.7; O2SAT 98
[2017-04-09 06:19] LABS: AUTOMATED NEUTROPHIL # 6.1 TH/MM3 (1.8-7.7); BASOPHIL # 0.1 TH/MM3 (0-0.2); BASOPHIL % 0.8 % (0.0-2.0); EOSINOPHIL # 0.3 TH/MM3 (0-0.4); EOSINOPHIL % 3.5 % (0.0-4.0); HEMATOCRIT 32.9 % (35.0-46.0); HEMO FLAGS DIFF FINAL; LYMPH % 23.6 % (9.0-44.0); LYMPHOCYTE # 2.2 TH/MM3 (1.0-4.8); MEAN CELL VOLUME 88.5 FL (80.0-100.0); MEAN CORPUSCULAR HEMOGLOBIN 29.5 PG (27.0-34.0); MEAN CORPUSCULAR HGB CONC 33.3 % (32.0-36.0); MONO % 7.8 % (0.0-8.0); NEUT % 64.3 % (16.0-70.0); PLATELET COUNT 240 TH/MM3 (150-450); RED BLOOD COUNT 3.72 MIL/MM3 (4.00-5.30); RED CELL DISTRIBUTION WIDTH 13.9 % (11.6-17.2); WHITE BLOOD COUNT 9.4 TH/MM3 (4.0-11.0)
[2017-04-09] MEDS: INSULIN ASPART SUPPLEMENTAL SCALE SQ SCH ×4 (06:32→20:17)
[2017-04-09 06:52] LABS: ALT (GPT) 28 U/L (10-53); ANION GAP 8 MEQ/L (5-15); AST (GOT) 16 U/L (15-37); BICARBONATE 21.9 MEQ/L (21.0-32.0); BLOOD UREA NITROGEN 22 MG/DL (7-18); CHLORIDE 107 MEQ/L (98-107); GLOMERULAR FILTRATION RATE 42 ML/MIN (>89); MAGNESIUM 1.8 MG/DL (1.5-2.5); SODIUM (NA) 137 MEQ/L (136-145)
[2017-04-09 06:57] LABS: ALKALINE PHOSPHATASE 98 U/L (45-117); FREE T4 1.19 NG/DL (0.76-1.46); HDL CHOLESTEROL 44.7 MG/DL (40.0-60.0); LDL CHOLESTEROL 79 MG/DL (0-99); TOTAL BILIRUBIN ADULT 0.3 MG/DL (0.2-1.0)
[2017-04-09] MEDS: CARVEDILOL 12.5 MG TAB PO SCH ×2 (09:29→20:19)
[2017-04-09] MEDS: ASPIRIN EC 81 MG TABEC PO SCH (09:29)
[2017-04-09] MEDS: HYDROCHLOROTHIAZIDE 25 MG TAB PO SCH (09:29)
[2017-04-09] MEDS: NICOTINE 21 MG/24 HR PATCH T-DERMAL SCH (09:29)
[2017-04-09] MEDS: metFORMIN HCL 500 MG TAB PO SCH ×3 (09:29→17:49)
[2017-04-09] MEDS: RAMIPRIL 5 MG CAP PO SCH (09:29)
[2017-04-09] MEDS: GLIMEPIRIDE 4 MG TAB PO SCH ×2 (09:29→20:19)
[2017-04-09] MEDS: PANTOPRAZOLE SOD 40 MG DELAYED RELEASE TAB PO SCH (09:29)
[2017-04-09] MEDS: REMOVE OLD PATCH T-DERMAL SCH (09:29)
[2017-04-09 14:30] VITALS: BP 142/64; PULSE 59
--- NOTE | 2017-04-09 15:32 | PD.CONS ---
[facility] team Reason for Consult Assist with medical management patient with recent uncontrolled hypertension Primary Care Physician No Primary Care Physician Diagnoses: History of Present Illness Written by Yandy Cruz, acting as scribe for Dr. Abarca on 04/09/17 at 15:31. Ms. Spence is a 77-year-old female patient with a known medical history of hypertension, hypothyroidism, sleep apnea tobacco use and COPD who initially presented to the ED with complaints of chest pain. Patient has been evaluated and DC to inpatient psychiatric center. We have been consulted to assist in medical management patient with recent uncontrolled HTN. Patient seen at inpatient psychiatric center appears pink no acute distress alert and oriented 3. Patient denies chest pain at this time. Patient reports one episode of diarrhea yesterday which has since resolved patient denies shortness of breath nausea vomiting fevers or chills. Patient asking when she will be discharged. Review of Systems Except as stated in HPI: all other systems reviewed are Neg Past Family Social History Allergies: Coded Allergies: Opioids - Morphine Analogues (Verified Allergy, Severe, Rash, 04/06/17) Opioids-Meperidine and Related (Verified Allergy, Severe, Rash, 04/06/17) Opioids-Methadone and Related (Verified Allergy, Severe, Rash, 04/06/17) Past Medical History Hypertension Psychiatric history COPD Hypothyroidism Sleep apnea with BIPAP at home for nighttime Tobacco abuse history Past Surgical History Previous abdominal surgery as a child, does not remember what was done. Hysterectomy Reported Medications Adult Aspirin EC Low Strength (Aspirin) 81 Mg Tabec 81 Mg PO DAILY Quetiapine (Quetiapine Fumarate) 25 Mg Tab 12.5 Mg PO BID@09,12 Metformin (Metformin HCl) 500 Mg Tab 500 Mg PO TIDPC With meals Amitriptyline (Amitriptyline HCl) 25 Mg Tab 25 Mg PO HS Gabapentin 300 Mg Cap 300 Mg PO HS Levothyroxine (Levothyroxine Sodium) 50 Mcg Tab 50 Mcg PO DAILY@1600 Pravastatin 20 Mg Tab 20 Mg PO HS Hydrochlorothiazide 25 Mg Tab 25 Mg PO DAILY Prilosec (Omeprazole Magnesium) 20 Mg Tab 40 Mg PO DAILY Glimepiride 4 Mg Tab 4 Mg PO BID Take with breakfast or first main meal Carvedilol 25 Mg Tab 25 Mg PO BID Altace (Ramipril) 10 Mg Cap 10 Mg PO DAILY Active Ordered Medications Current Medications Medications (Trade) Dose Ordered Sig/Matilda Route Start Time Stop Time Status Last Admin (Ativan) 1 mg Q6H PRN PO 04/08/17 16:30 04/08/17 22:12 (Ativan Inj) 1 mg Q6H PRN IM 04/08/17 16:30 (Ativan) 0.5 mg Q12H PRN PO 04/08/17 16:30 04/09/17 14:13 (Ativan Inj) 0.5 mg Q12H PRN IM 04/08/17 16:30 (Tylenol) 650 mg Q4H PRN PO 04/08/17 16:30 (Milk Of Magnesia Liq) 30 ml DAILY PRN PO 04/08/17 16:30 (Mag-Al Plus Susp Liq) 30 ml Q6H PRN PO 04/08/17 16:30 (Habitrol 21 Mg Patch.24 Hr) 1 patch DAILY T-DERMAL 04/09/17 09:00 04/09/17 09:29 (Romazicon Inj) 0.2 mg Q1M PRN IV PUSH 04/08/17 16:30 (Ativan) 1 mg Q4H PRN PO 04/08/17 16:30 (Ativan Inj) 1 mg Q4H PRN IV PUSH 04/08/17 16:30 (Ativan) 2 mg Q2H PRN PO 04/08/17 16:30 (Ativan Inj) 2 mg Q2H PRN IV PUSH 04/08/17 16:30 (Ativan Inj) 2 mg Q1H PRN IV PUSH 04/08/17 16:30 (Ativan Inj) 2 mg Q15M PRN IV PUSH 04/08/17 16:30 Miscellaneous Information 1 DAILY T-DERMAL 04/09/17 09:00 (Ecotrin Ec) 81 mg DAILY PO 04/09/17 09:00 04/09/17 09:29 (Coreg) 25 mg BID PO 04/08/17 21:00 04/09/17 09:29 (Neurontin) 300 mg HS PO 04/08/17 21:00 04/08/17 21:56 (Amaryl) 4 mg BID PO 04/08/17 21:00 04/09/17 09:29 (Hydrodiuril) 25 mg DAILY PO 04/08/17 17:45 04/09/17 09:29 (Synthroid) 50 mcg DAILY@1600 PO 04/08/17 17:45 04/08/17 18:48 (Glucophage) 500 mg TIDPC PO 04/08/17 18:30 04/09/17 13:48 (Pravachol) 20 mg HS PO 04/08/17 21:00 04/08/17 21:00 (Altace) 10 mg DAILY PO 04/08/17 18:00 04/09/17 09:29 (Protonix) 40 mg DAILY PO 04/08/17 17:45 04/09/17 09:29 (Catapres) 0.1 mg Q6H PRN PO 04/08/17 17:45 (D50w (Vial) Inj) 50 ml UNSCH PRN IV 04/08/17 17:45 (Glucagon Inj) 1 mg UNSCH PRN OTHER 04/08/17 17:45 (NovoLOG SUPPLEMENTAL SCALE) 1 ACHS SLIDING SCALE SQ 04/08/17 21:00 Family History Patient denies significant family medical history including diabetes mellitus, hypertension, CAD, CVA Social History Patient lives in a house with her cousin. Denies any current tobacco use, does admit to a smoking history, stopped smoking in her 50's. Denies any alcohol use. Denies any illicit drug use. Physical Exam Vital Signs Vital Signs Date Time Temp Pulse Resp B/P (MAP) Pulse Ox O2 Delivery O2 Flow Rate FiO2 04/09/17 05:32 98.7 61 17 127/56 (79) 98 04/08/17 16:34 97.9 54 17 191/85 (120) 98 Physical Exam GENERAL: Well-nourished, well-developed female patient in NAD. SKIN: Warm and dry. No rash. HEENT: Normocephalic. Atraumatic. EOMI. Mucous membranes pink and moist. CARDIOVASCULAR: Regular rate and rhythm. S1, S2 noted. No murmur appreciated. RESPIRATORY: No accessory muscle use. Clear to auscultation. Breath sounds equal bilaterally. GASTROINTESTINAL: Abdomen soft, non-tender, nondistended. Normoactive bowel sounds x4. MUSCULOSKELETAL: No obvious deformities. Extremities without clubbing, cyanosis , or edema. NEUROLOGICAL: Awake and alert. No obvious cranial nerve deficits. Motor grossly within normal limits. Moving all extremities spontaneously. Normal speech. PSYCHIATRIC: Tangential, anxious mood; insight and judgment limited. Laboratory Laboratory Tests Test 04/09/17 06:13 White Blood Count 9.4 Red Blood Count 3.72 Hemoglobin 11.0 Hematocrit 32.9 Mean Corpuscular Volume 88.5 Mean Corpuscular Hemoglobin 29.5 Mean Corpuscular Hemoglobin Concent 33.3 Red Cell Distribution Width 13.9 Platelet Count 240 Mean Platelet Volume 8.0 Neutrophils (%) (Auto) 64.3 Lymphocytes (%) (Auto) 23.6 Monocytes (%) (Auto) 7.8 Eosinophils (%) (Auto) 3.5 Basophils (%) (Auto) 0.8 Neutrophils # (Auto) 6.1 Lymphocytes # (Auto) 2.2 Monocytes # (Auto) 0.7 Eosinophils # (Auto) 0.3 Basophils # (Auto) 0.1 CBC Comment DIFF FINAL Differential Comment Blood Urea Nitrogen 22 Creatinine 1.23 Random Glucose 134 Total Protein 6.9 Albumin 3.3 Calcium Level 9.0 Phosphorus Level 2.7 Magnesium Level 1.8 Alkaline Phosphatase 98 Aspartate Amino Transf (AST/SGOT) 16 Alanine Aminotransferase (ALT/SGPT) 28 Total Bilirubin 0.3 Sodium Level 137 Potassium Level 4.0 Chloride Level 107 Carbon Dioxide Level 21.9 Anion Gap 8 Estimat Glomerular Filtration Rate 42 Triglycerides Level 144 Cholesterol Level 152 LDL Cholesterol 79 HDL Cholesterol 44.7 Cholesterol/HDL Ratio 3.40 Free Thyroxine 1.19 Thyroid Stimulating Hormone 3rd Gen 5.590 Result Diagram: 04/09/1761204/09/17612 Assessment and Plan Assessment and Plan 77-year-old female patient with a known medical history of hypertension, dyslipidemia and COPD who presented to the ED with complaints of chest pain. Atypical chest pain: Initial troponin negative. EKG reviewed showing mild ST depression, NSR. -Serial cardiac enzymes negative 2 (checked 23hrs apart) -continue aspirin, continue ACEi and BB -Patient continues to refuse any stress testing, says she's had a stress test in the past -chest pain resolved, no further episodes Hypertension, chronic: BP elevated on presentation 235/98- improving and now 142 /62 -Monitor BP closely. -Continue Coreg and ramipril Acute kidney injury: suspect secondary to dehydration possible CKD do not have baseline -continue to encourage oral hydration. -Repeat BMP in AM Diarrhea- resolved - continue to monitor for continued/reoccurrence of diarrhea Chronic obstructive pulmonary disease: chronic, stable. No home inhalers or nebs on record. Hypothyroidism: Continue home Levothyroxine. Dyslipidemia: Continue home Pravastatin Type 2 diabetes mellitus: chronic. Initially patient's Metformin with DOMINICK, now on hold. Continue patient's glimepiride. Monitor Accu checks, cover with sliding scale insulin. DVT Prophylaxis encourage ambulation This note was transcribed by dwain Cruz. I, Dr. Wilmer Astudillo personally performed the history, physical exam, and medical decision making; and confirmed the accuracy of the information in the transcribed note. Authenticated by Dr. Wilmer Astudillo on 04/09/17 15:41 Yandy Cruz Apr 09, 2017 15:32 Wilmer Rubio MD Apr 09, 2017 16:29
[2017-04-09] MEDS: LEVOTHYROXINE SODIUM 50 MCG TAB PO SCH (16:16)
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
[2017-04-09] MEDS ORDERED: PILL SPLITTER OTHER PRN (17:30)
[2017-04-09] MEDS: cloNIDine HCL 0.1 MG TAB PO PRN (17:48)
[2017-04-09 18:10] VITALS: BP 175/75; PULSE 60; RESP 18; TEMP 98; O2SAT 99
[2017-04-09 20:11] VITALS: BP 149/68; PULSE 66
[2017-04-09] MEDS: GABAPENTIN 300 MG CAP PO SCH (20:17)
[2017-04-09] MEDS: QUEtiapine FUMARATE 25 MG TAB PO SCH (20:18)
[2017-04-09] MEDS: PRAVASTATIN SOD 20 MG TAB PO SCH (20:18)
[2017-04-10] MEDS: cloNIDine HCL 0.1 MG TAB PO PRN (05:48)
[2017-04-10] MEDS: INSULIN ASPART SUPPLEMENTAL SCALE SQ SCH ×4 (05:50→20:56)
[2017-04-10] MEDS: ACETAMINOPHEN 325 MG TAB PO PRN ×2 (05:54→08:35)
[2017-04-10 06:36] VITALS: BP 177/72; PULSE 71; RESP 16; TEMP 98.3; O2SAT 98
[2017-04-10 06:43] VITALS: BP 153/67; PULSE 65
[2017-04-10] MEDS: RAMIPRIL 5 MG CAP PO SCH (08:20)
[2017-04-10] MEDS: CARVEDILOL 12.5 MG TAB PO SCH ×2 (08:21→21:04)
[2017-04-10] MEDS: GLIMEPIRIDE 4 MG TAB PO SCH ×2 (08:21→21:03)
[2017-04-10] MEDS: ASPIRIN EC 81 MG TABEC PO SCH (08:22)
[2017-04-10] MEDS: PANTOPRAZOLE SOD 40 MG DELAYED RELEASE TAB PO SCH (08:22)
[2017-04-10] MEDS: HYDROCHLOROTHIAZIDE 25 MG TAB PO SCH (08:22)
[2017-04-10] MEDS: metFORMIN HCL 500 MG TAB PO SCH ×3 (08:23→18:13)
[2017-04-10] MEDS: QUEtiapine FUMARATE 25 MG TAB PO SCH ×2 (08:24→21:01)
[2017-04-10] MEDS: NICOTINE 21 MG/24 HR PATCH T-DERMAL SCH (08:34)
[2017-04-10] MEDS: REMOVE OLD PATCH T-DERMAL SCH (08:34)
[2017-04-10] MEDS: DOXAZOSIN MESYLATE 1 MG TAB PO SCH (13:51)
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
[2017-04-10 15:43] LABS: HEMOGLOBIN A1a 1.4 %; HEMOGLOBIN A1b 2.6 %; HEMOGLOBIN Ao 79.6 %; HEMOGLOBIN LA1C 1.7 %
[2017-04-10] MEDS: LEVOTHYROXINE SODIUM 50 MCG TAB PO SCH (16:05)
[2017-04-10 18:00] VITALS: BP 113/57; PULSE 66; RESP 18; TEMP 98.4; O2SAT 98
[2017-04-10] MEDS: PRAVASTATIN SOD 20 MG TAB PO SCH (21:00)
[2017-04-10] MEDS: GABAPENTIN 300 MG CAP PO SCH (21:01)
[2017-04-10] MEDS: LORazepam 1 MG TAB PO PRN (21:03)
[2017-04-10] MEDS: IBUPROFEN 200 MG TAB PO PRN (21:04)
--- NOTE | 2017-04-10 21:12 | HHI.PR ---
Subjective Remarks Deferred entry - patient seen earlier at 12:30 pm Patient is c/o low back pain - non radiating denies fevers or chills pain is non radiating Objective Vitals Vital Signs Date Time Temp Pulse Resp B/P (MAP) Pulse Ox O2 Delivery O2 Flow Rate FiO2 04/10/17 18:00 98.4 66 18 113/57 (75) 98 04/10/17 10:14 18 04/10/17 06:43 65 153/67 (95) 04/10/17 06:36 98.3 71 16 177/72 (107) 98 I/O 04/09/17 04/09/17 04/09/17 04/10/17 04/10/17 04/10/17 06:59 14:59 22:59 06:59 14:59 22:59 Intake Total 1440 ml 120 ml 240 ml 480 ml Balance 1440 ml 120 ml 240 ml 480 ml Intake Oral 1440 ml 120 ml 240 ml 480 ml # Voids 2 3 6 # Bowel Movements 2 Result Diagram: 04/09/1713 04/09/1713 Objective Remarks AAOx3 NAD Clear lungs BL S1S2 + RRR, no MRG Abd soft, NT, ND no edema in extremities Lower back without deformity but tender to palpation in the spinous process and paraspinal muscles. Medications and IVs Current Medications Medications (Trade) Dose Ordered Sig/Matilda Route Start Time Stop Time Status Last Admin (Ativan) 1 mg Q6H PRN PO 04/08/17 16:30 04/10/17 21:03 (Ativan Inj) 1 mg Q6H PRN IM 04/08/17 16:30 (Ativan) 0.5 mg Q12H PRN PO 04/08/17 16:30 04/09/17 14:13 (Ativan Inj) 0.5 mg Q12H PRN IM 04/08/17 16:30 (Tylenol) 650 mg Q4H PRN PO 04/08/17 16:30 04/10/17 08:35 (Milk Of Magnesia Liq) 30 ml DAILY PRN PO 04/08/17 16:30 (Mag-Al Plus Susp Liq) 30 ml Q6H PRN PO 04/08/17 16:30 04/10/17 10:15 (Habitrol 21 Mg Patch.24 Hr) 1 patch DAILY T-DERMAL 04/09/17 09:00 04/10/17 08:34 (Romazicon Inj) 0.2 mg Q1M PRN IV PUSH 04/08/17 16:30 (Ativan) 1 mg Q4H PRN PO 04/08/17 16:30 (Ativan Inj) 1 mg Q4H PRN IV PUSH 04/08/17 16:30 (Ativan) 2 mg Q2H PRN PO 04/08/17 16:30 (Ativan Inj) 2 mg Q2H PRN IV PUSH 04/08/17 16:30 (Ativan Inj) 2 mg Q1H PRN IV PUSH 04/08/17 16:30 (Ativan Inj) 2 mg Q15M PRN IV PUSH 04/08/17 16:30 Miscellaneous Information 1 DAILY T-DERMAL 04/09/17 09:00 04/10/17 08:34 (Ecotrin Ec) 81 mg DAILY PO 04/09/17 09:00 04/10/17 08:22 (Coreg) 25 mg BID PO 04/08/17 21:00 04/10/17 21:04 (Neurontin) 300 mg HS PO 04/08/17 21:00 04/10/17 21:01 (Amaryl) 4 mg BID PO 04/08/17 21:00 04/10/17 21:03 (Hydrodiuril) 25 mg DAILY PO 04/08/17 17:45 04/10/17 08:22 (Synthroid) 50 mcg DAILY@1600 PO 04/08/17 17:45 04/10/17 16:05 (Glucophage) 500 mg TIDPC PO 04/08/17 18:30 04/10/17 18:13 (Pravachol) 20 mg HS PO 04/08/17 21:00 04/10/17 21:00 (Altace) 10 mg DAILY PO 04/08/17 18:00 04/10/17 08:20 (Protonix) 40 mg DAILY PO 04/08/17 17:45 04/10/17 08:22 (Catapres) 0.1 mg Q6H PRN PO 04/08/17 17:45 04/10/17 05:48 (D50w (Vial) Inj) 50 ml UNSCH PRN IV 04/08/17 17:45 (Glucagon Inj) 1 mg UNSCH PRN OTHER 04/08/17 17:45 (NovoLOG SUPPLEMENTAL SCALE) 1 ACHS SLIDING SCALE SQ 04/08/17 21:00 04/10/17 11:28 (SEROquel) 12.5 mg BID PO 04/09/17 21:00 04/10/17 21:01 (Pill Splitter) 1 ea UNSCH PRN OTHER 04/09/17 17:30 04/09/17 20:18 (Cardura) 1 mg DAILY PO 04/10/17 10:45 04/10/17 13:51 (Advil) 200 mg Q4H PRN PO 04/10/17 17:15 04/10/17 21:04 A/P Problem List: (1) Uncontrolled hypertension ICD Code: I10 - Essential (primary) hypertension (2) Atypical chest pain ICD Code: R07.89 - Other chest pain Status: Acute (3) DOMINICK (acute kidney injury) ICD Code: N17.9 - Acute kidney failure, unspecified Status: Acute (4) DM (diabetes mellitus) ICD Code: E11.9 - Type 2 diabetes mellitus without complications Status: Acute (5) Unspecified psychosis ICD Code: F29 - Unspecified psychosis not due to a substance or known physiological condition Status: Acute Assessment and Plan 77-year-old female patient with a known medical history of hypertension, dyslipidemia and COPD who presented to the ED with complaints of chest pain. Atypical chest pain: Initial troponin negative. EKG reviewed showing mild ST depression, NSR. -Serial cardiac enzymes negative 2 (checked 23hrs apart) -continue aspirin, continue ACEi and BB -Patient continues to refuse any stress testing, says she's had a stress test in the past -chest pain resolved, no further episodes Hypertension, chronic: BP elevated on presentation 235/98- -Monitor BP closely. -Continue Coreg and ramipril - 04/10 BP still severely elevated. Will start Doxazosin 1 mg po daily. Acute kidney injury: suspect secondary to dehydration possible CKD do not have baseline -continue to encourage oral hydration. -Crearinine slightly elevated from 04/08 1.05 - 1.2 -Check renal us, check urine electrolytes and consult nephrology. Diarrhea- resolved - continue to monitor for continued/reoccurrence of diarrhea Chronic obstructive pulmonary disease: chronic, stable. No home inhalers or nebs on record. Hypothyroidism: Continue home Levothyroxine. Dyslipidemia: Continue home Pravastatin Type 2 diabetes mellitus: chronic. On Metformin. Continue patient's glimepiride. Monitor Accu checks, cover with sliding scale insulin. 04/10 BS stable. Continue to monitor blood sugars. DVT Prophylaxis encourage ambulation Problem Qualifiers (1) DM (diabetes mellitus): Qualified Codes: E11.8 - Type 2 diabetes mellitus with unspecified complications Wilmer Rubio MD Apr 10, 2017 21:12
[2017-04-11 06:35] VITALS: BP 144/65; PULSE 62; RESP 16; TEMP 97.9; O2SAT 100
[2017-04-11] MEDS: INSULIN ASPART SUPPLEMENTAL SCALE SQ SCH ×4 (07:00→20:12)
[2017-04-11] MEDS: REMOVE OLD PATCH T-DERMAL SCH (09:00)
[2017-04-11] MEDS: metFORMIN HCL 500 MG TAB PO SCH ×3 (09:45→18:17)
[2017-04-11] MEDS: PANTOPRAZOLE SOD 40 MG DELAYED RELEASE TAB PO SCH (09:45)
[2017-04-11] MEDS: DOXAZOSIN MESYLATE 1 MG TAB PO SCH (09:45)
[2017-04-11] MEDS: IBUPROFEN 200 MG TAB PO PRN (09:45)
[2017-04-11] MEDS: GLIMEPIRIDE 4 MG TAB PO SCH ×2 (09:46→20:10)
[2017-04-11] MEDS: RAMIPRIL 5 MG CAP PO SCH (09:46)
[2017-04-11] MEDS: CARVEDILOL 12.5 MG TAB PO SCH ×2 (09:46→20:12)
[2017-04-11] MEDS: QUEtiapine FUMARATE 25 MG TAB PO SCH ×2 (09:46→20:12)
[2017-04-11] MEDS: ASPIRIN EC 81 MG TABEC PO SCH (09:46)
[2017-04-11] MEDS: HYDROCHLOROTHIAZIDE 25 MG TAB PO SCH (09:46)
[2017-04-11] MEDS: NICOTINE 21 MG/24 HR PATCH T-DERMAL SCH (09:47)
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
--- NOTE | 2017-04-11 15:45 | HHI.PR ---
Subjective Remarks patient states back pain is much better denies cough, sob, cp Objective Vitals Vital Signs Date Time Temp Pulse Resp B/P (MAP) Pulse Ox O2 Delivery O2 Flow Rate FiO2 04/11/17 06:35 97.9 62 16 144/65 (91) 100 04/10/17 18:00 98.4 66 18 113/57 (75) 98 I/O 04/10/17 04/10/17 04/10/17 04/11/17 04/11/17 04/11/17 07:00 15:00 23:00 07:00 15:00 23:00 Intake Total 120 ml 240 ml 480 ml 840 ml 600 ml Balance 120 ml 240 ml 480 ml 840 ml 600 ml Intake Oral 120 ml 240 ml 480 ml 840 ml 240 ml Oral Supplement 360 ml # Voids 3 6 4 # Bowel Movements 2 Result Diagram: 04/09/17 0613 04/09/17 0613 Objective Remarks AAOx3 NAD Clear lungs BL S1S2 + RRR, no MRG Abd soft, NT, ND no edema in extremities Lower back without deformity but tender to palpation in the spinous process and paraspinal muscles. Medications and IVs Current Medications Medications (Trade) Dose Ordered Sig/Matilda Route Start Time Stop Time Status Last Admin (Ativan) 1 mg Q6H PRN PO 04/08/17 16:30 04/10/17 21:03 (Ativan Inj) 1 mg Q6H PRN IM 04/08/17 16:30 (Ativan) 0.5 mg Q12H PRN PO 04/08/17 16:30 04/09/17 14:13 (Ativan Inj) 0.5 mg Q12H PRN IM 04/08/17 16:30 (Tylenol) 650 mg Q4H PRN PO 04/08/17 16:30 04/10/17 08:35 (Milk Of Magnesia Liq) 30 ml DAILY PRN PO 04/08/17 16:30 (Mag-Al Plus Susp Liq) 30 ml Q6H PRN PO 04/08/17 16:30 04/10/17 10:15 (Habitrol 21 Mg Patch.24 Hr) 1 patch DAILY T-DERMAL 04/09/17 09:00 04/11/17 09:47 (Romazicon Inj) 0.2 mg Q1M PRN IV PUSH 04/08/17 16:30 (Ativan) 1 mg Q4H PRN PO 04/08/17 16:30 (Ativan Inj) 1 mg Q4H PRN IV PUSH 04/08/17 16:30 (Ativan) 2 mg Q2H PRN PO 04/08/17 16:30 (Ativan Inj) 2 mg Q2H PRN IV PUSH 04/08/17 16:30 (Ativan Inj) 2 mg Q1H PRN IV PUSH 04/08/17 16:30 (Ativan Inj) 2 mg Q15M PRN IV PUSH 04/08/17 16:30 Miscellaneous Information 1 DAILY T-DERMAL 04/09/17 09:00 04/10/17 08:34 (Ecotrin Ec) 81 mg DAILY PO 04/09/17 09:00 04/11/17 09:46 (Coreg) 25 mg BID PO 04/08/17 21:00 04/11/17 09:46 (Neurontin) 300 mg HS PO 04/08/17 21:00 04/10/17 21:01 (Amaryl) 4 mg BID PO 04/08/17 21:00 04/11/17 09:46 (Hydrodiuril) 25 mg DAILY PO 04/08/17 17:45 04/11/17 09:46 (Synthroid) 50 mcg DAILY@1600 PO 04/08/17 17:45 04/10/17 16:05 (Glucophage) 500 mg TIDPC PO 04/08/17 18:30 04/11/17 13:30 (Pravachol) 20 mg HS PO 04/08/17 21:00 04/10/17 21:00 (Altace) 10 mg DAILY PO 04/08/17 18:00 04/11/17 09:46 (Protonix) 40 mg DAILY PO 04/08/17 17:45 04/11/17 09:45 (Catapres) 0.1 mg Q6H PRN PO 04/08/17 17:45 04/10/17 05:48 (D50w (Vial) Inj) 50 ml UNSCH PRN IV 04/08/17 17:45 (Glucagon Inj) 1 mg UNSCH PRN OTHER 04/08/17 17:45 (NovoLOG SUPPLEMENTAL SCALE) 1 ACHS SLIDING SCALE SQ 04/08/17 21:00 04/10/17 11:28 (Pill Splitter) 1 ea UNSCH PRN OTHER 04/09/17 17:30 04/09/17 20:18 (Cardura) 1 mg DAILY PO 04/10/17 10:45 04/11/17 09:45 (Advil) 200 mg Q4H PRN PO 04/10/17 17:15 04/11/17 09:45 (SEROquel) 25 mg BID PO 04/11/17 21:00 A/P Problem List: (1) Uncontrolled hypertension ICD Code: I10 - Essential (primary) hypertension (2) Atypical chest pain ICD Code: R07.89 - Other chest pain Status: Acute (3) DOMINICK (acute kidney injury) ICD Code: N17.9 - Acute kidney failure, unspecified Status: Acute (4) DM (diabetes mellitus) ICD Code: E11.9 - Type 2 diabetes mellitus without complications Status: Acute (5) Unspecified psychosis ICD Code: F29 - Unspecified psychosis not due to a substance or known physiological condition Status: Acute Assessment and Plan 77-year-old female patient with a known medical history of hypertension, dyslipidemia and COPD who presented to the ED with complaints of chest pain. Atypical chest pain: Initial troponin negative. EKG reviewed showing mild ST depression, NSR. -Serial cardiac enzymes negative 2 (checked 23hrs apart) -continue aspirin,BB, SHRUTHI inhibitor due to DOMINICK -Patient continues to refuse any stress testing, says she's had a stress test in the past -chest pain resolved, no further episodes Hypertension, chronic: BP elevated on presentation 235/98- -Monitor BP closely. -Continue Coreg and ramipril - 04/10 BP still severely elevated. Will start Doxazosin 1 mg po daily. - 04/11 BP with better control. Continue doxazosin 1 g by mouth daily, Coreg 25 mg by mouth twice a day, Hold SHRUTHI inhibitor Acute kidney injury: suspect secondary to dehydration possible CKD do not have baseline -continue to encourage oral hydration. -Crearinine slightly elevated from 04/08 1.05 - 1.2 -Check renal us, check urine electrolytes and consult nephrology. Diarrhea- resolved - continue to monitor for continued/reoccurrence of diarrhea Chronic obstructive pulmonary disease: chronic, stable. No home inhalers or nebs on record. Hypothyroidism: Continue home Levothyroxine. Dyslipidemia: Continue home Pravastatin Type 2 diabetes mellitus: chronic. On Metformin. Continue patient's glimepiride. Monitor Accu checks, cover with sliding scale insulin. 04/10 BS stable. Continue to monitor blood sugars. Chronic low back pain: Now resolved. Will DC Ibuprofen and place on Tramadol. DVT Prophylaxis encourage ambulation Problem Qualifiers (1) DM (diabetes mellitus): Qualified Codes: E11.8 - Type 2 diabetes mellitus with unspecified complications Wilmer Rubio MD Apr 11, 2017 15:45
[2017-04-11] MEDS: LEVOTHYROXINE SODIUM 50 MCG TAB PO SCH (16:00)
[2017-04-11 16:52] LABS: BLOOD, URINE NEG (NEG); COMMENT (UR) CULT NOT INDICATED; CULTURE IF INDICATED CULT NOT INDICATED; GLUCOSE,URINE NEG (NEG); KETONE, URINE NEG (NEG); MUCUS URINE FEW /lpf (OCC); NITRITE,URINE NEG (NEG); PH, URINE 5.5 (5.0-8.5); URINE COLOR LIGHT-YELLOW (YELLW/STRAW)
[2017-04-11] MEDS ORDERED: ACETAMINOPHEN 500 MG CPLT PO PRN (17:00)
--- NOTE | 2017-04-11 17:30 | MB ---
cc: TIARA FUNK MD DATE OF CONSULTATION: 04/11/2017 REASON FOR CONSULTATION: Elevated BUN and creatinine. HISTORY OF PRESENT ILLNESS This is a 77-year-old female with past medical history of hypertension, hypothyroidism, chronic obstructive pulmonary disease, history of psychosis, sleep apnea and chronic kidney disease, came to the hospital because of psychosis. The patient was admitted in the psych unit and I was called to see the patient because of elevated BUN and creatinine. The patient told me that she has history of renal disease and she was evaluated by a turning machine set up operator two years ago when she was admitted at [facility] and she has history of getting recurrent urinary tract infections and getting antibiotics for that. The patient denies any dysuria, hematuria now. She does not have any nausea or vomiting. There is no history of diarrhea. She has chronic back pain and has been taking Advil off and on. There is no history of renal stones. She has history of smoking and chronic obstructive pulmonary disease. PAST MEDICAL HISTORY Hypertension, hypothyroidism, sleep apnea, chronic obstructive pulmonary disease, possible chronic kidney disease, history of recurrent urinary tract infection, sleep apnea, psychosis. PAST SURGICAL HISTORY History of abdominal surgery, hysterectomy. REVIEW OF SYSTEMS Denies any history of headache, dizziness or blurring of vision. She does not have any shortness of breath now, no nausea or vomiting. No history of diarrhea. No dysuria, hematuria, difficulty passing urine. She has chronic back pain has been taking Advil off and on. SOCIAL HISTORY History of smoking. There is no history of heavy alcoholism. FAMILY HISTORY: Noncontributory. ALLERGIES She has multiple allergies including: MORPHINE METHERGINE METHADONE MEDICATIONS: 1. Carvedilol 25 mg b.i.d. 2. Amaryl 4 mg b.i.d. 3. Seroquel 25 mg b.i.d. 4. Nicotine patch. 5. Aspirin 81 milligrams once a day. 6. Hydrochlorothiazide 25 milligrams once a day. 7. Protonix 40 milligrams daily. 8. Synthroid 50 micrograms once a day. 9. Cardizem 1 mg daily. 10. Neurontin 300 mg q.h.s. 11. Pravastatin 20 mg q.h.s. 12. Insulin sliding scale. 13. Metformin 500 mg t.i.d. 14. Lorazepam 1 milligram p.r.n. PHYSICAL EXAMINATION: The patient is awake, alert. She is not in acute distress. VITAL SIGNS: Her last blood pressure is 144/60, temperature 97.9, oxygen saturation is 98 to 100%. HEENT: Pupils are mid constricted. Nonicteric sclera, conjunctiva pale. Neck: Supple. JVD is not elevated. Lungs: The patient has bilateral good air entry with occasional wheezing. Heart: S1-S2 regular. Abdomen: Distended, soft, lax. There is no tenderness. Bowel sounds positive. Extremities: There is no pedal edema. INVESTIGATIONS: WBC count is 9.4, hemoglobin 11.0, platelet count 240. Neutrophils 64.3%. Sodium is 137, potassium 4.0, chloride 107, bicarb 22, BUN 1.23, hemoglobin A1c is 10.4. Calcium is 9.0, phosphorus 2.7, AST/ALT normal. Total protein is 6.9, albumin of 3.3. TSH is 5.5. Urinalysis shows protein of 30. Urine toxicology screen is positive for opiates, barbiturates and benzodiazepines. IMAGING STUDIES The patient has chest x-ray done which shows lung schulz clear. There is no acute lesion. CT scan of the brain was done without IV contrast and it shows no acute hemorrhage or mass effect. Some atrophic changes of chronic small vessel disease. ASSESSMENT AND PLAN: 1. Chronic kidney disease. 2. Hypertension. 3. Diabetes mellitus. 4. COPD. 5. Psychosis. The patient has chronic kidney disease most likely related to hypertensive or diabetic renal disease. I will get ultrasound of the kidneys. Her blood pressure off and on is slightly elevated which needs to be controlled in a better way. She also needs to stop taking nonsteroidal anti-inflammatory drugs. This was explained to the patient. I will repeat the urinalysis and also get ultrasound of the kidneys and I will DC the hydrochlorothiazide since the patient can easily get dehydrated with her psychiatric disease. If needed, other medications can be added or the dose can be adjusted for the blood pressure control. Thank you for the consultation. I will follow the patient while she is in the hospital. MD WILIAM Javed/JACOBO /4:07 PM /4:23 PM
[2017-04-11 18:00] VITALS: BP 158/62; PULSE 79; RESP 16; TEMP 98.3; O2SAT 100
[2017-04-11] MEDS: ACETAMINOPHEN 325 MG TAB PO PRN (19:14)
[2017-04-11] MEDS: GABAPENTIN 300 MG CAP PO SCH (20:09)
[2017-04-11] MEDS: PRAVASTATIN SOD 20 MG TAB PO SCH (20:11)
[2017-04-11 20:27] LABS: BICARBONATE 23.1 MEQ/L (21.0-32.0); POTASSIUM 4.1 MEQ/L (3.5-5.1)
[2017-04-11] MEDS: LORazepam 1 MG TAB PO PRN (22:41)
[2017-04-12 06:09] VITALS: BP 135/60; PULSE 78; RESP 18; TEMP 98.1; O2SAT 100
[2017-04-12 06:26] LABS: BICARBONATE 23.3 MEQ/L (21.0-32.0)
[2017-04-12] MEDS: INSULIN ASPART SUPPLEMENTAL SCALE SQ SCH ×5 (06:39→21:00)
[2017-04-12] MEDS: NICOTINE 21 MG/24 HR PATCH T-DERMAL SCH (08:41)
[2017-04-12] MEDS: CARVEDILOL 12.5 MG TAB PO SCH ×2 (08:42→20:14)
[2017-04-12] MEDS: PANTOPRAZOLE SOD 40 MG DELAYED RELEASE TAB PO SCH (08:42)
[2017-04-12] MEDS: QUEtiapine FUMARATE 25 MG TAB PO SCH ×2 (08:42→20:14)
[2017-04-12] MEDS: metFORMIN HCL 500 MG TAB PO SCH ×3 (08:43→18:12)
[2017-04-12] MEDS: GLIMEPIRIDE 4 MG TAB PO SCH ×2 (08:43→21:00)
[2017-04-12] MEDS: DOXAZOSIN MESYLATE 1 MG TAB PO SCH (08:43)
[2017-04-12] MEDS: ASPIRIN EC 81 MG TABEC PO SCH (08:43)
[2017-04-12] MEDS: REMOVE OLD PATCH T-DERMAL SCH (08:44)
--- NOTE | 2017-04-12 10:35 | HHI.PR ---
Subjective Remarks The patient was resting comfortably in bed. She was excited about going home soon. She denied any further chest pain. She has been eating. She has been ambulating. She has been having bowel movements. She says she will follow up with doctors in regards to her kidneys. No concerns from nursing. Objective Vitals Vital Signs Date Time Temp Pulse Resp B/P (MAP) Pulse Ox O2 Delivery O2 Flow Rate FiO2 04/12/17 06:09 98.1 78 18 135/60 (85) 100 04/11/17 18:00 98.3 79 16 158/62 (94) 100 I/O 04/11/17 04/11/17 04/11/17 04/12/17 04/12/17 04/12/17 06:59 14:59 22:59 06:59 14:59 22:59 Intake Total 840 ml 600 ml 720 ml 240 ml 480 ml Balance 840 ml 600 ml 720 ml 240 ml 480 ml Intake Oral 840 ml 240 ml 720 ml 240 ml 480 ml Oral Supplement 360 ml # Voids 4 4 3 Result Diagram: 04/09/17 0613 04/12/17 0553 Objective Remarks GENERAL: Well-nourished, well-developed female patient in [facility]. SKIN: Warm and dry. No rash. HEENT: Normocephalic. Atraumatic. EOMI. Mucous membranes pink and moist. CARDIOVASCULAR: Regular rate and rhythm. S1, S2 noted. No murmur appreciated. RESPIRATORY: No accessory muscle use. Clear to auscultation. Breath sounds equal bilaterally. GASTROINTESTINAL: Abdomen soft, non-tender, nondistended. Normoactive bowel sounds x4. MUSCULOSKELETAL: No obvious deformities. Extremities without clubbing, cyanosis , or edema. NEUROLOGICAL: Awake and alert. No obvious cranial nerve deficits. Motor grossly within normal limits. Moving all extremities spontaneously. Normal speech. PSYCHIATRIC: Mood and affect appropriate. Medications and IVs Current Medications Medications (Trade) Dose Ordered Sig/Matilda Route Start Time Stop Time Status Last Admin (Ativan) 1 mg Q6H PRN PO 04/08/17 16:30 04/11/17 22:41 (Ativan Inj) 1 mg Q6H PRN IM 04/08/17 16:30 (Ativan) 0.5 mg Q12H PRN PO 04/08/17 16:30 04/09/17 14:13 (Ativan Inj) 0.5 mg Q12H PRN IM 04/08/17 16:30 (Tylenol) 650 mg Q4H PRN PO 04/08/17 16:30 04/11/17 19:14 (Milk Of Magnesia Liq) 30 ml DAILY PRN PO 04/08/17 16:30 (Mag-Al Plus Susp Liq) 30 ml Q6H PRN PO 04/08/17 16:30 04/10/17 10:15 (Habitrol 21 Mg Patch.24 Hr) 1 patch DAILY T-DERMAL 04/09/17 09:00 04/12/17 08:41 (Romazicon Inj) 0.2 mg Q1M PRN IV PUSH 04/08/17 16:30 (Ativan) 1 mg Q4H PRN PO 04/08/17 16:30 (Ativan Inj) 1 mg Q4H PRN IV PUSH 04/08/17 16:30 (Ativan) 2 mg Q2H PRN PO 04/08/17 16:30 (Ativan Inj) 2 mg Q2H PRN IV PUSH 04/08/17 16:30 (Ativan Inj) 2 mg Q1H PRN IV PUSH 04/08/17 16:30 (Ativan Inj) 2 mg Q15M PRN IV PUSH 04/08/17 16:30 Miscellaneous Information 1 DAILY T-DERMAL 04/09/17 09:00 04/12/17 08:44 (Ecotrin Ec) 81 mg DAILY PO 04/09/17 09:00 04/12/17 08:43 (Coreg) 25 mg BID PO 04/08/17 21:00 04/12/17 08:42 (Neurontin) 300 mg HS PO 04/08/17 21:00 04/11/17 20:09 (Amaryl) 4 mg BID PO 04/08/17 21:00 04/12/17 08:43 (Synthroid) 50 mcg DAILY@1600 PO 04/08/17 17:45 04/11/17 16:00 (Glucophage) 500 mg TIDPC PO 04/08/17 18:30 04/12/17 08:43 (Pravachol) 20 mg HS PO 04/08/17 21:00 04/11/17 20:11 (Protonix) 40 mg DAILY PO 04/08/17 17:45 04/12/17 08:42 (Catapres) 0.1 mg Q6H PRN PO 04/08/17 17:45 04/10/17 05:48 (D50w (Vial) Inj) 50 ml UNSCH PRN IV 04/08/17 17:45 (Glucagon Inj) 1 mg UNSCH PRN OTHER 04/08/17 17:45 (NovoLOG SUPPLEMENTAL SCALE) 1 ACHS SLIDING SCALE SQ 04/08/17 21:00 04/10/17 11:28 (Pill Splitter) 1 ea UNSCH PRN OTHER 04/09/17 17:30 04/09/17 20:18 (Cardura) 1 mg DAILY PO 04/10/17 10:45 04/12/17 08:43 (SEROquel) 25 mg BID PO 04/11/17 21:00 04/12/17 08:42 (Tylenol) 1,000 mg Q6H PRN PO 04/11/17 17:00 04/12/17 08:43 A/P Problem List: (1) Uncontrolled hypertension ICD Code: I10 - Essential (primary) hypertension (2) Atypical chest pain ICD Code: R07.89 - Other chest pain Status: Acute (3) DOMINICK (acute kidney injury) ICD Code: N17.9 - Acute kidney failure, unspecified Status: Acute (4) DM (diabetes mellitus) ICD Code: E11.9 - Type 2 diabetes mellitus without complications Status: Acute (5) Unspecified psychosis ICD Code: F29 - Unspecified psychosis not due to a substance or known physiological condition Status: Acute Assessment and Plan 77-year-old female patient with a known medical history of hypertension, dyslipidemia and COPD who presented to the ED with complaints of chest pain. Atypical chest pain: Initial troponin negative. EKG reviewed showing mild ST depression, NSR. -Serial cardiac enzymes negative 2 (checked 23hrs apart). -continue aspirin,BB, SHRUTHI inhibitor due to DOMINICK -Patient continues to refuse any stress testing, says she's had a stress test in the past -chest pain resolved, no further episodes. Hypertension, chronic: BP elevated on presentation 235/98. Improved on current regimen. -Monitor BP closely. -Continue Coreg. Ramipril has been discontinued. Continue doxazosin 1 mg po daily. Acute kidney injury: suspect secondary to dehydration, possible CKD Nephrology consult appreciated. Cr elevated at 1.23. - continue to encourage oral hydration. - Check renal us and follow with nephrology. Diarrhea- resolved - continue to monitor for continued/ reoccurrence of diarrhea Chronic obstructive pulmonary disease: chronic, stable. No home inhalers or nebs on record. Hypothyroidism: Continue home Levothyroxine. Dyslipidemia: Continue home Pravastatin Type 2 diabetes mellitus: chronic. On Metformin. Continue patient's glimepiride. Monitor Accu checks, cover with sliding scale insulin. 04/12 BS well controlled. Continue to monitor blood sugars. Chronic low back pain: Now resolved. Will DC Ibuprofen and place on Tramadol. DVT Prophylaxis encourage ambulation Discharge Planning OK to transfer to regular psych unit. Problem Qualifiers (1) DM (diabetes mellitus): Qualified Codes: E11.8 - Type 2 diabetes mellitus with unspecified complications Da Mcgovern DO Apr 12, 2017 10:35
--- NOTE | 2017-04-12 12:50 | HHI.PYPN ---
Subjective Remarks Patient seen for follow-up, chart reviewed. After discussion with nursing staff patient refuses ultrasound today has not had any behavioral issues since admission, been compliant with medications. Patient found lying in hospital but was able to wake up for interview today. Patient states that she has been feeling good, no problems with urination or bowel movement, tolerating medications well. Patient states that she is aware that she would like to mental health court tomorrow. Patient continues to endorse that there are people after her money and particularly her brother. Patient this time denies any mood symptoms, denies any SI, HI, AVH but continues to have paranoid ideations. Review of Systems Except as stated in HPI: all other systems reviewed are Neg Objective Alert: Yes [place]: Person, Place, Date (partially) Mood: Calm Affect: Appropriate Memory Intact: Immediate Hallucinations: Other (she denies) Delusions: Yes Delusion Type: Paranoid Suicidal: Ideation (no SI) Homicidal: Ideation (no HI) Insight/Judgment Limited insight, fair impulse control and limited judgment Labs Labs reviewed. Test 04/11/17 19:11 04/12/17 05:53 Blood Urea Nitrogen 31 MG/DL 32 MG/DL Creatinine 1.19 MG/DL 1.23 MG/DL Random Glucose 124 MG/DL 102 MG/DL Calcium Level 8.8 MG/DL 8.7 MG/DL Sodium Level 136 MEQ/L 140 MEQ/L Potassium Level 4.1 MEQ/L 4.0 MEQ/L Chloride Level 104 MEQ/L 107 MEQ/L Carbon Dioxide Level 23.1 MEQ/L 23.3 MEQ/L Anion Gap 9 MEQ/L 10 MEQ/L Estimat Glomerular Filtration Rate 44 ML/MIN 42 ML/MIN Vitals/IOs Vital Signs Date Time Temp Pulse Resp B/P (MAP) Pulse Ox O2 Delivery O2 Flow Rate FiO2 04/12/17 06:09 98.1 78 18 135/60 (85) 100 Intake and Output 04/12/17 04/12/17 04/13/17 08:00 16:00 00:00 Intake Total 240 ml 480 ml Balance 240 ml 480 ml Assessment & Plan Problem List: (1) Unspecified psychosis ICD Codes: F29 - Unspecified psychosis not due to a substance or known physiological condition Status: Acute Assessment & Plan Patient at this time has not had any behavioral dyscontrol since admission, states that he has a current treatment with no reported adverse drug reactions. Unclear whether there is some validity to the patient's current paranoia concerning her brother and others might steal her money. Collateral pending. Continue current treatment, patient will present to mental health court tomorrow for petition for involuntary admission. Discharge planning in progress. Justification for Cont. Inpt. Patient at risk for further decompensation if at a lower level of care Favio Mccurdy MD Apr 12, 2017 12:50
[2017-04-12] MEDS: LEVOTHYROXINE SODIUM 50 MCG TAB PO SCH (16:20)
[2017-04-12 17:47] VITALS: BP 168/73; PULSE 72; RESP 17; TEMP 97.8; O2SAT 100
[2017-04-12] MEDS: GABAPENTIN 300 MG CAP PO SCH (20:14)
[2017-04-12] MEDS: PRAVASTATIN SOD 20 MG TAB PO SCH (20:15)
[2017-04-12] MEDS: LORazepam 1 MG TAB PO PRN (20:28)
[2017-04-13 05:38] VITALS: BP 173/73; PULSE 88; RESP 18; TEMP 96.8; O2SAT 97
[2017-04-13] MEDS: REMOVE OLD PATCH T-DERMAL SCH (09:00)
[2017-04-13] MEDS: QUEtiapine FUMARATE 25 MG TAB PO SCH (09:00)
[2017-04-13] MEDS: GLIMEPIRIDE 4 MG TAB PO SCH (09:00)
[2017-04-13] MEDS: ASPIRIN EC 81 MG TABEC PO SCH (09:00)
[2017-04-13] MEDS: DOXAZOSIN MESYLATE 1 MG TAB PO SCH (09:00)
[2017-04-13] MEDS: PANTOPRAZOLE SOD 40 MG DELAYED RELEASE TAB PO SCH (09:00)
[2017-04-13] MEDS: NICOTINE 21 MG/24 HR PATCH T-DERMAL SCH (09:00)
[2017-04-13] MEDS: CARVEDILOL 12.5 MG TAB PO SCH (09:00)
[2017-04-13] MEDS: metFORMIN HCL 500 MG TAB PO SCH ×2 (09:30→12:50)
[2017-04-13] MEDS: INSULIN ASPART SUPPLEMENTAL SCALE SQ SCH (11:00)
[2017-04-13] MEDS ORDERED: NEUR300C PO (12:12)
[2017-04-13] MEDS ORDERED: PRAV20TA PO (12:12)
[2017-04-13] MEDS ORDERED: LEVO.05 PO (12:12)
[2017-04-13] MEDS ORDERED: CARD1TAB PO (12:12)
[2017-04-13] MEDS ORDERED: ASPI-99 PO (12:12)
[2017-04-13] MEDS ORDERED: CARV12.5 PO (12:12)
[2017-04-13] MEDS ORDERED: PANT40TA3 PO (12:12)
[2017-04-13] MEDS ORDERED: QUET1TAB7 PO (12:12)
[2017-04-13] MEDS ORDERED: AMAR4TAB PO (12:12)
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
== END 2017-04-13 14:22 | disposition home or self-care (01) | DRG 885 ==
LOC: H250 12:05 → H4EA 17:30 → H250 04-12 13:00
PROVIDERS: ADMIT Student in an Organized Health Care Education/Training Program; ATTEND Student in an Organized Health Care Education/Training Program
DX: F29 Unspecified psychosis not due to a substance or known physiological condition (principal); N17.9 Acute kidney failure, unspecified; E11.22 Type 2 diabetes mellitus with diabetic chronic kidney disease; Z99.81 Dependence on supplemental oxygen; J44.9 Chronic obstructive pulmonary disease, unspecified; E86.0 Dehydration; R07.89 Other chest pain; I12.9 Hypertensive chronic kidney disease with stage 1 through stage 4 chronic kidney disease, or unspecified chronic kidney disease; E78.5 Hyperlipidemia, unspecified; R41.89 Other symptoms and signs involving cognitive functions and awareness; N18.9 Chronic kidney disease, unspecified; E03.9 Hypothyroidism, unspecified; G47.30 Sleep apnea, unspecified; Z87.891 Personal history of nicotine dependence; R19.7 Diarrhea, unspecified; Z79.84 Long term (current) use of oral hypoglycemic drugs; Z87.440 Personal history of urinary (tract) infections; G89.29 Other chronic pain; M54.5 Low back pain
CPT/HCPCS: 80048; 80053; 80061; 81001; 82948; 83036; 83735; 84100; 84133; 84300; 84439; 84443; 85025; G0378; J1815; J7030